=== PATIENT | male | born 1990 | race Caucasian/White ===

== ENCOUNTER 2016-12-02 11:19 | Emergency (ER) | payer OTHER ==
[2016-12-02 11:23] VITALS: BP 132/75; PULSE 71; TEMP 98.4; BMI 41.3
--- NOTE | 2016-12-02 11:31 | PDOC ---
History of Present Illness - General Chief Complaint: Pain Stated Complaint: STOMACH PAIN Time Seen by Provider: 12/02/16 11:31 - History of Present Illness Initial Comments: 12/02/16 12:18 "Patient is a 26 year old male with no past medical history, presents to the ED with epigastric abdominal pain since yesterday. He states that he last ate [place] food last night. The pain has been constant since then. He reports 3 episodes of vomiting today. He also reports chills but no fevers. Patient states that he had a similar episode last year after eating steak. Pt came to this ER, where he had a CT abdomen/pelvis that was negative. He denies any fever, diarrhea, constipation, SOB, or cp. PSH - none " Past History - Past Medical History Allergies/Adverse Reactions: Allergies Allergy/AdvReac Type Severity Reaction Status Date / Time No Known Allergies Allergy Verified 12/02/16 11:23 Home Medications: Ambulatory Orders NK [No Known Home Medication] 09/27/15 - Psycho/Social/Smoking Cessation Hx Anxiety: No Suicidal Ideation: No Smoking History: Never smoked Have you smoked in the past 12 months: No Information on smoking cessation initiated: No Hx Alcohol Use: No Drug/Substance Use Hx: No Substance Use Type: None Review of Systems - Review of Systems Comments:: 12/02/16 12:20 "GENERAL/CONSTITUTIONAL: (+) chills. No fever. No weakness. HEAD, EYES, EARS, NOSE AND THROAT: No change in vision. No ear pain or discharge. No sore throat. GASTROINTESTINAL:(+)nausea, vomiting, abdominal pain. No diarrhea or constipation. GENITOURINARY: No dysuria, frequency, or change in urination. CARDIOVASCULAR: No chest pain or shortness of breath. RESPIRATORY: No cough, wheezing, or hemoptysis. MUSCULOSKELETAL: No joint or muscle swelling or pain. No neck or back pain. SKIN: No rash NEUROLOGIC: No headache, vertigo, loss of consciousness, or change in strength/ sensation. ENDOCRINE: No increased thirst. No abnormal weight change. HEMATOLOGIC/LYMPHATIC: No anemia, easy bleeding, or history of blood clots. ALLERGIC/IMMUNOLOGIC: No hives or skin allergy. " *Physical Exam - Vital Signs Last Vital Signs Temp Pulse Resp BP Pulse Ox 98.4 F 71 18 132/75 99 12/02/16 11:20 12/02/16 11:20 12/02/16 11:20 12/02/16 11:20 12/02/16 11:20 - Physical Exam Comments: 12/02/16 12:20 "GENERAL: Awake, alert, and fully oriented, in no acute distress HEAD: No signs of trauma EYES: PERRLA, EOMI, sclera anicteric, conjunctiva clear ENT: Auricles normal inspection, hearing grossly normal, nares patent, oropharynx clear without exudates. Moist mucosa NECK: Normal ROM, supple, no lymphadenopathy, JVD, or masses LUNGS: Breath sounds equal, clear to auscultation bilaterally. No wheezes, and no crackles HEART: Regular rate and rhythm, normal S1 and S2, no murmurs, rubs or gallops ABDOMEN: (+)epigastric tenderness. Soft, normoactive bowel sounds. No guarding , no rebound. No masses EXTREMITIES: Normal range of motion, no edema. No clubbing or cyanosis. No cords, erythema, or tenderness NEUROLOGICAL: Cranial nerves II through XII grossly intact. Normal speech, normal gait SKIN: Warm, Dry, normal turgor, no rashes or lesions noted. " ED Treatment Course - LABORATORY CBC & Chemistry Diagram: 12/02/16 11:47 12/02/16 11:47 Medical Decision Making - Medical Decision Making 12/02/16 12:21 26 M with no PMH presents to ER with epigastric pain and vomiting since last night after eating. Pt with similar complaint last year, had unremarkable CTAP. Etiology likely gastritis vs pancreatitis. However, given association with eating, will obtain RUQ sono to r/o gallbladder pathology. - Labs, lipase - RUQ sono - IVF, zofran, pepcid, maalox 12/02/16 13:31 CBC,CMP WBC 10.4 K/mm3 (4.0-10.0) H 12/02/16 11:47 RBC 5.46 M/mm3 (4.00-5.60) 12/02/16 11:47 Hgb 14.8 GM/dL (11.7-16.9) 12/02/16 11:47 Hct 44.8 % (35.4-49) 12/02/16 11:47 MCV 82.1 fl (80-96) 12/02/16 11:47 MCH 27.2 pg (25.7-33.7) 12/02/16 11:47 MCHC 33.1 g/dl (32.0-35.9) 12/02/16 11:47 RDW 14.2 % (11.9-15.9) 12/02/16 11:47 Plt Count 292 K/MM3 (134-434) 12/02/16 11:47 MPV 8.2 fl (7.5-11.1) 12/02/16 11:47 Neutrophils % 70.6 % (42.8-82.8) 12/02/16 11:47 Lymphocytes % 18.3 % (8-40) D 12/02/16 11:47 Monocytes % 8.1 % (3.8-10.2) 12/02/16 11:47 Eosinophils % 2.4 % (0-4.5) 12/02/16 11:47 Basophils % 0.6 % (0-2.0) 12/02/16 11:47 Sodium 142 mmol/L (136-145) 12/02/16 11:47 Potassium 4.4 mmol/L (3.5-5.1) 12/02/16 11:47 Chloride 104 mmol/L (98-107) 12/02/16 11:47 Carbon Dioxide 30 mmol/L (21-32) 12/02/16 11:47 Anion Gap 8 (8-16) 12/02/16 11:47 BUN 14 mg/dL (7-18) 12/02/16 11:47 Creatinine 0.9 mg/dL (0.7-1.3) 12/02/16 11:47 Creat Clearance w eGFR > 60 (>60) 12/02/16 11:47 Random Glucose 107 mg/dL (74-106) H D 12/02/16 11:47 Calcium 9.4 mg/dL (8.5-10.1) 12/02/16 11:47 Total Bilirubin 0.7 mg/dL (0.2-1.0) D 12/02/16 11:47 AST 12 U/L (15-37) L 12/02/16 11:47 ALT 33 U/L (12-78) 12/02/16 11:47 Alkaline Phosphatase 144 U/L (45-117) H 12/02/16 11:47 Total Protein 7.3 g/dl (6.4-8.2) 12/02/16 11:47 Albumin 4.0 g/dl (3.4-5.0) 12/02/16 11:47 Lipase 140 U/L (73-393) 12/02/16 11:47 US with cholelithiasis but no cholecystitis. Labs show normal bilis, no evidence of biliary obstruction. Negative gallardo's on exam. Low suspicion for acute ernie. Pt reassessed. Now able to tolerate PO liquids s/p GI cocktail. Abdomen with mild epigastric TTP. Likely gastritis. Stable for DC. *DC/Admit/Observation/Transfer Diagnosis at time of Disposition: Abdominal pain - Discharge Dispostion Disposition: HOME - Referrals Referrals: Jaja Pringle [Primary Care Provider] - Mary Lou Boo MD [Staff Physician] - - Patient Instructions Printed Discharge Instructions: DI for Gastritis, DI for Gallstones Additional Instructions: Your labs today were normal. Your ultrasound showed some gallstones, which can potentially cause problems in the future. Call the number provided to make an appointment with our gastroenterology clinic for further evaluation of your gallstones. These may occasionally cause blockages or infections that can cause severe pain, illness, or even . If you experience severe abdominal pain with fevers or vomiting, return to the ER immediately. - Attestations Physician Attestion: 12/02/16 13:44 I, Dr. Philippe Arango MD, attest that this document has been prepared under my direction and personally reviewed by me in its entirety. I further attest, that it accurately reflects all work, treatment, procedures and medical decision -making performed by me.
[2016-12-02] MEDS ORDERED: MAG HYDROX/AL HYDROX/SIMETH 30 ML UNIT-DOSE CUP PO ONE (11:38)
[2016-12-02] MEDS ORDERED: ONDANSETRON 4 MG/2 ML VIAL IVPB ONE (11:39)
[2016-12-02] MEDS ORDERED: MAG HYDROX/AL HYDROX/SIMETH 30 ML UNIT-DOSE CUP ONE (11:46)
[2016-12-02] MEDS ORDERED: ONDANSETRON 4 MG/2 ML VIAL ONE (11:46)
[2016-12-02] MEDS ORDERED: FAMOTIDINE 20 MG/50 ML IVPB 50 ML IVPB ONE ×2 (12:06→12:43)
[2016-12-02 12:21] LABS: BASOPHIL 0.6 % (0-2.0); EOSINOPHIL 2.4 % (0-4.5); MCH 27.2 pg (25.7-33.7); MCHC 33.1 g/dl (32.0-35.9); MEAN CELL VOLUME 82.1 fl (80-96); MEAN PLT VOLUME 8.2 fl (7.5-11.1); NEUTROPHILS 70.6 % (42.8-82.8); PLATELET COUNT 292 K/MM3 (134-434); RDW 14.2 % (11.9-15.9); WHITE BLOOD COUNT 10.4 K/mm3 (4.0-10.0)
[2016-12-02 12:40] LABS: URINE APPEARANCE CLEAR; URINE BILIRUBIN NEGATIVE (NEGATIVE); URINE BLOOD NEGATIVE (NEGATIVE); URINE COLOR LTYELLOW; URINE GLUCOSE (UA) NEGATIVE (NEGATIVE); URINE KETONE NEGATIVE (NEGATIVE); URINE LEUK ESTERASE NEGATIVE (NEGATIVE); URINE NITRITE NEGATIVE (NEGATIVE); URINE PROTEIN NEGATIVE (NEGATIVE); URINE UROBILINOGEN NEGATIVE mg/dL (0.2-1.0)
[2016-12-02 12:53] LABS: ALK PHOS 144 U/L (45-117); ANION GAP 8 (8-16); BILIRUBIN,TOTAL 0.7 mg/dL (0.2-1.0); CALCIUM 9.4 mg/dL (8.5-10.1); CO2 30 mmol/L (21-32); CREATININE 0.9 mg/dL (0.7-1.3); GLUCOSE,RANDOM 107 mg/dL (74-106); SGOT/AST 12 U/L (15-37); SGPT/ALT 33 U/L (12-78); TOT PROT 7.3 g/dl (6.4-8.2)
== END 2016-12-02 13:48 | disposition home or self-care (01) ==
LOC: JER 11:19
PROC: 3E033GC Introduction of Other Therapeutic Substance into Peripheral Vein, Percutaneous Approach (ICD-10-PCS; principal; 2016-12-02)
PROC: 3E033GC Introduction of Other Therapeutic Substance into Peripheral Vein, Percutaneous Approach (ICD-10-PCS; 2016-12-02)
DX: K29.70 Gastritis, unspecified, without bleeding (principal); K80.20 Calculus of gallbladder without cholecystitis without obstruction
CPT/HCPCS: 36415; 76705-TC; 80053; 81003; 83690; 85025; 96365; 96375; 99283-25

== ENCOUNTER 2018-03-06 23:11 | Emergency (ER) | payer OTHER ==
[2018-03-06 23:17] VITALS: BP 145/75; PULSE 80; TEMP 97.9; BMI 39.9
--- NOTE | 2018-03-06 23:20 | PDOC ---
History of Present Illness - General Chief Complaint: Cold Symptoms Stated Complaint: COUGH Time Seen by Provider: 03/06/18 23:20 - History of Present Illness Initial Comments: 27 year old previously healthy male presenting with cough for the past two days and subsequent chest tightness + one episode apnea and wheezing. Patient presented today because of the episode of apnea and wheezing after a bout of coughing earlier today. Denies any history of asthma or atopy and he has no family history of atopy. Of note his brother was hospitalized for bronchitis earlier this week but was febrile and much worse appearing. Denies any fevers, chills, nausea, vomiting, diarrhea or other symptoms. 03/06/18 23:50 Past History - Past Medical History Allergies/Adverse Reactions: Allergies Allergy/AdvReac Type Severity Reaction Status Date / Time No Known Allergies Allergy Verified 03/06/18 23:16 Home Medications: Ambulatory Orders Albuterol 2.5/Ipratropium 0.5 [Duoneb -] 1 amp NEB Q4H PRN #1 inhaler 03/07/18 Prednisone [Prednisone 50 MG TABLETS] 50 mg PO DAILY #4 tablet 03/07/18 COPD: No - Suicide/Smoking/Psychosocial Hx Smoking History: Never smoked Have you smoked in the past 12 months: No Information on smoking cessation initiated: No Hx Alcohol Use: No Drug/Substance Use Hx: No Substance Use Type: None Review of Systems - Review of Systems Constitutional: No: Diaphoresis, Fever, Loss of Appetite HEENTM: No: Blurred Vision, Tearing, Cataracts, Ear Pain Respiratory: Yes: Cough, Shortness of Breath, SOB at Rest, Wheezing. No: Productive cough Cardiac (ROS): Yes: Chest Pain. No: Irregular Heart Rate, Syncope ABD/GI: No: Diarrhea, Nausea, Vomiting : No: Dysuria, Discharge, Frequency Musculoskeletal: No: Back Pain, Joint Pain Integumentary: No: Bruising, Lesions, Lumps, Pruritus Neurological: No: Headache, Numbness, Paresthesia Psychiatric: No: Anxiety, Depression Hematologic/Lymphatic: No: Anemia, Blood Clots, Easy Bleeding *Physical Exam - Vital Signs Last Vital Signs Temp Pulse Resp BP Pulse Ox 97.9 F 80 23 H 145/75 96 03/06/18 23:14 03/06/18 23:14 03/06/18 23:14 03/06/18 23:14 03/06/18 23:14 - Physical Exam General Appearance: Yes: Nourished, Appropriately Dressed. No: Apparent Distress HEENT: positive: EOMI, YANETH, Normal ENT Inspection, Normal Voice Neck: positive: Trachea midline, Normal Thyroid, Supple. negative: Tender, Rigid Respiratory/Chest: negative: Chest Tender, Lungs Clear (slightly contricted with expiratory wheezing), Normal Breath Sounds, Respiratory Distress Cardiovascular: positive: Regular Rhythm, Regular Rate Gastrointestinal/Abdominal: positive: Normal Bowel Sounds, Flat, Soft. negative : Tender Musculoskeletal: positive: Normal Inspection. negative: CVA Tenderness, Decreased Range of Motion Extremity: positive: Normal Capillary Refill, Normal Inspection, Normal Range of Motion. negative: Tender Integumentary: positive: Normal Color, Dry, Warm Neurologic: positive: Fully Oriented, Alert, Normal Mood/Affect, Normal Response , Motor Strength 5/5 Medical Decision Making - Medical Decision Making 27 year old male presenting with cough and shortness of breath over the past few days. Symptoms much improved after duonebs x3, steroids, and cough syrup. This is likely some form of asthma. Will also set patient up with our primary care clinic for longitudinal follow up, steroid dose pack, and albuterol inhaler. 03/07/18 02:04 *DC/Admit/Observation/Transfer Diagnosis at time of Disposition: Respiratory difficulty - Discharge Dispostion Disposition: HOME Condition at time of disposition: Improved Decision to Admit order: No - Prescriptions Prescriptions: Albuterol 2.5/Ipratropium 0.5 [Duoneb -] 1 amp NEB Q4H PRN #1 inhaler PRN Reason: Dyspnea Prednisone [Prednisone 50 MG TABLETS] 50 mg PO DAILY #4 tablet - Referrals Referrals: [facility] [place] [Provider Group] - Patient Instructions Printed Discharge Instructions: DI for Asthma -- Adult Additional Instructions: Please use the inhaler every 4 hours as needed, please take the steroids once daily, and please schedule an appointment with the clinic on this sheet to get yourself primary care. Please return to the ED if you have any new or worsening symptoms. - Post Discharge Activity
[2018-03-06] MEDS ORDERED: ALBUTEROL SO4 2.5/IPRATROPIUM 0.5 INH SOL 3 ML VIAL.NEB. NEB SCH (23:45)
[2018-03-06] MEDS ORDERED: ALBUTEROL SO4 2.5/IPRATROPIUM 0.5 INH SOL 3 ML VIAL.NEB. NEB ONE (23:48)
--- NOTE | 2018-03-06 23:48 | PDOC ---
Attending Attestation - HPI HPI: 03/07/18 00:15 The patient is a 27 year old male, with no significant past medical history of, who presents to the emergency department with, cough. As per patient, for the past few days he has been experiencing a worsening cough. Today he notes, one episode of shortness of breath while coughing and chest tightness when coughing , prompting his visit to the ER. Patient is positive for sick contacts of his brother who was recently admitted for bronchitis. He denies any recent fevers, chills, headache or dizziness. He denies any recent nausea, vomit, diarrhea or constipation. He denies any recent dysuria, frequency, urgency or hematuria. Allergies: NKDA Past surgical history: None reported. Social History: Nonsmoker. Denies EtOH use and recreational drug use. Primary Care Physician: Dr. Pringle <Jag Neri - Last Filed: 03/07/18 00:15> - Resident Resident Name: eCcilio Patten - ED Attending Attestation I have performed the following: I have examined & evaluated the patient, The case was reviewed & discussed with the resident, I agree w/resident's findings & plan, Exceptions are as noted - Physicial Exam PE: 03/07/18 00:27 NAD, AOx3 Normal WOB, diffuse end exp wheezing - Medical Decision Making 03/07/18 00:28 No hx of asthma here with several days of URI symptoms, currently afebrile. No other complaints Likely viral syndrome, no focality to lung exam, bronchospasm likely 2/2 uri trigger nebs, re-eval consider steroids 03/07/18 02:52 Interval improvement of symptoms after intervention DC home with rx, strict return instructions <Zafar Rojas - Last Filed: 03/07/18 02:52> Attestations - Attestations 03/07/18 00:15 Documentation prepared by Jag Neri, acting as medical transcription editor for Zafar Rojas MD. <Jag Neri - Last Filed: 03/07/18 00:15>
[2018-03-06] MEDS ORDERED: ACETAMINOPHEN 325 MG TABLET (FP) ONE (23:58)
[2018-03-06] MEDS ORDERED: ACETAMINOPHEN 500 MG TABLET (FP) PO ONE (23:58)
[2018-03-06] MEDS ORDERED: guaiFENesin 200 MG/10 ML 10 ML UNIT-DOSE CUPS ONE (23:59)
[2018-03-06] MEDS ORDERED: guaiFENesin 200 MG/10 ML 10 ML UNIT-DOSE CUPS PO ONE (23:59)
[2018-03-07] MEDS ORDERED: DEXAMETHASONE 4 MG TABLET (FP) PO ONE (00:25)
[2018-03-07] MEDS ORDERED: DEXAMETHASONE SOD PHOSPHATE 10 MG/1 ML VIAL ONE (00:31)
[2018-03-07] MEDS ORDERED: ALBUTEROL SO4 2.5/IPRATROPIUM 0.5 INH SOL 3 ML VIAL.NEB. NEB ONE (00:50)
[2018-03-07] MEDS: ALBUTEROL SO4 2.5/IPRATROPIUM 0.5 INH SOL 3 ML VIAL.NEB. NEB SCH ×2 (00:56→01:18)
[2018-03-07] MEDS ORDERED: guaiFENesin/CODEINE 5 ML UNIT-DOSE CUPS PO ONE (23:58)
== END 2018-03-07 02:23 | disposition home or self-care (01) ==
LOC: JER 23:11
DX: J06.9 Acute upper respiratory infection, unspecified (principal); B97.89 Other viral agents as the cause of diseases classified elsewhere
CPT/HCPCS: 99282-25

== ENCOUNTER 2018-03-19 21:48 | Inpatient (IN) | payer OTHER ==
[2018-03-19] MEDS ORDERED: ALBUTEROL SO4 2.5/IPRATROPIUM 0.5 INH SOL 3 ML VIAL.NEB. NEB ONE ×2 (22:01→22:58)
--- NOTE | 2018-03-19 22:06 | PDOC ---
History of Present Illness - General Chief Complaint: Shortness of Breath Stated Complaint: Shortness of Breath Time Seen by Provider: 03/19/18 22:01 - History of Present Illness Initial Comments: 03/19/18 22:06 Mr. Bradley is a 27 yo male w/ pmh of childhood asthma previously evaluated 03/06 for 2 day history of cough who represents for continuation of symptoms with wheezing at home. Patient reports he has had non-stop coughing for the past 2 weeks with additional pain from coughing. Denies productive cough, or any other coinciding symptoms. Brother was hospitalized for bronchitis a few days before his previous presentation. Denies travel or immobilization. The patient denies headache and dizziness. Denies fever, chills, nausea, vomit, diarrhea and constipation. Denies dysuria, frequency, urgency and hematuria. Past History - Past Medical History Allergies/Adverse Reactions: Allergies Allergy/AdvReac Type Severity Reaction Status Date / Time No Known Allergies Allergy Verified 03/19/18 22:07 Home Medications: Ambulatory Orders Albuterol 2.5/Ipratropium 0.5 [Duoneb -] 1 amp NEB Q4H PRN #1 inhaler 03/07/18 Prednisone [Prednisone 50 MG TABLETS] 50 mg PO DAILY #4 tablet 03/07/18 COPD: No - Suicide/Smoking/Psychosocial Hx Smoking History: Never smoked Have you smoked in the past 12 months: No Hx Alcohol Use: No Drug/Substance Use Hx: No Substance Use Type: None Review of Systems - Review of Systems Comments:: 03/20/18 00:36 GENERAL/CONSTITUTIONAL: No fever or chills. No weakness. HEAD, EYES, EARS, NOSE AND THROAT: No change in vision. No ear pain or discharge. No sore throat. CARDIOVASCULAR: +Shortness of breath as described RESPIRATORY: No cough, wheezing, or hemoptysis. GASTROINTESTINAL: No nausea, vomiting, diarrhea or constipation. GENITOURINARY: No dysuria, frequency, or change in urination. MUSCULOSKELETAL: No joint or muscle swelling or pain. No neck or back pain. SKIN: No rash NEUROLOGIC: No headache, vertigo, loss of consciousness, or change in strength/ sensation. ENDOCRINE: No increased thirst. No abnormal weight change HEMATOLOGIC/LYMPHATIC: No anemia, easy bleeding, or history of blood clots. ALLERGIC/IMMUNOLOGIC: No hives or skin allergy. *Physical Exam - Physical Exam Comments: 03/20/18 00:35 GENERAL: Awake, alert, and fully oriented, in no acute distress HEAD: No signs of trauma, normocephalic, atraumatic EYES: PERRLA, EOMI, sclera anicteric, conjunctiva clear ENT: Auricles normal inspection, hearing grossly normal, nares patent, oropharynx clear without exudates. Moist mucosa NECK: Normal ROM, supple, no lymphadenopathy, JVD, or masses LUNGS: +Diffuse wheezes appreciated throughout lung thomas. HEART: Regular rate and rhythm, normal S1 and S2, no murmurs, rubs or gallops, peripheral pulses normal and equal bilaterally. ABDOMEN: Soft, nontender, normoactive bowel sounds. No guarding, no rebound. No masses EXTREMITIES: Normal inspection, Normal range of motion, no edema. No clubbing or cyanosis. NEUROLOGICAL: Cranial nerves II through XII grossly intact. Normal speech, normal gait, no focal sensorimotor deficits SKIN: Warm, Dry, normal turgor, no rashes or lesions noted. ED Treatment Course - LABORATORY CBC & Chemistry Diagram: 03/19/18 22:50 03/19/18 22:50 Medical Decision Making - Medical Decision Making 03/20/18 00:36 Mr. Bradley is a 27 yo male w/ pmh as described who presents for evaluation of several weeks of cough with wheezing. Patient given several duonebs as well as solumedrol, mg, with little improvement of symptoms. CXR negative. Labs grossly wnl. Will admit patient for observation overnight for bronchitis / asthma exacerbation. Laboratory Results - last 24 hr 03/19/18 03/19/18 03/19/18 22:50 22:50 22:50 WBC 10.7 H RBC 5.19 Hgb 14.8 Hct 42.7 MCV 82.4 MCH 28.5 MCHC 34.6 RDW 14.0 Plt Count 259 MPV 7.6 Absolute Neuts (auto) 5.6 Neutrophils % 52.9 D Lymphocytes % 30.0 D Monocytes % 6.9 Eosinophils % 9.4 H D Basophils % 0.8 Nucleated RBC % 0 Sodium 139 Potassium 4.1 Chloride 103 Carbon Dioxide 27 Anion Gap 9 BUN 15 Creatinine 0.9 Creat Clearance w eGFR > 60 Random Glucose 80 Calcium 9.0 Total Bilirubin 1.2 H AST 18 ALT 30 Alkaline Phosphatase 120 H Total Protein 7.4 Albumin 4.2 Influenza A (Rapid) Negative Influenza B (Rapid) Negative *DC/Admit/Observation/Transfer Diagnosis at time of Disposition: Bronchitis Asthma exacerbation Qualifiers: Asthma severity: unspecified severity Asthma persistence: unspecified Qualified Code(s): J45.901 - Unspecified asthma with (acute) exacerbation - Discharge Dispostion Decision to Admit order: Yes - Referrals Referrals: Jaja Pringle [Primary Care Provider] - - Patient Instructions - Post Discharge Activity
[2018-03-19] MEDS ORDERED: SODIUM CHLORIDE 1,000 ML IV STA (22:15)
[2018-03-19] MEDS ORDERED: methylPREDNISolone NA SUCC 125 MG/2 ML VIAL IVPUSH ONE (22:58)
[2018-03-19] MEDS ORDERED: methylPREDNISolone NA SUCC 125 MG/2 ML VIAL ONE (22:58)
[2018-03-19 23:01] LABS: BASO % 0.8 % (0-2.0); EOS % 9.4 % (0-4.5); HEMATOCRIT 42.7 % (35.4-49); HEMOGLOBIN 14.8 GM/dL (11.7-16.9); MCH 28.5 pg (25.7-33.7); MCHC 34.6 g/dl (32.0-35.9); MEAN CELL VOLUME 82.4 fl (80-96); MEAN PLT VOLUME 7.6 fl (7.5-11.1); MONO % 6.9 % (3.8-10.2); NEUT % 52.9 % (42.8-82.8); PLATELET COUNT 259 K/MM3 (134-434); RBC 5.19 M/mm3 (4.00-5.60); WHITE BLOOD COUNT 10.7 K/mm3 (4.0-10.0)
--- NOTE | 2018-03-19 23:04 | PDOC ---
Attending Attestation - HPI HPI: 03/19/18 23:08 The patient is a 27 year old female, with a significant past medical history of childhood asthma, who presents to the emergency department with persistent cough and wheezing. The patient denies chest pain, headache and dizziness. The patient denies fever , chills, nausea, vomit, diarrhea and constipation. The patient denies dysuria, frequency, urgency and hematuria. Allergies: NKDA - Physicial Exam PE: 03/19/18 23:09 GENERAL: The patient is in no acute distress. HEAD: Normal with no signs of trauma. EYES: PERRLA, EOMI, sclera anicteric, conjunctiva clear. ENT: Ears normal, nares patent, oropharynx clear without exudates. Moist mucous membranes. NECK: Normal range of motion, supple without lymphadenopathy, JVD, or masses. LUNGS: (+) scattered diffuse wheezing. Breath sounds equal, clear to auscultation bilaterally. no crackles. HEART:Regular rate and rhythm, normal S1 and S2 without murmur, rub or gallop. ABDOMEN: Soft, nontender, normoactive bowel sounds. No guarding, no rebound. No masses palpable. EXTREMITIES: Normal range of motion, no edema. No clubbing or cyanosis. No erythema, or tenderness. NEUROLOGICAL: Cranial nerves II through XII grossly intact. Normal speech. No focal neurological deficits. MUSCULOSKELETAL: Back non-tender to palpation, no CVA tenderness SKIN: Warm, Dry, normal turgor, no rashes or lesions noted. - Medical Decision Making 03/19/18 23:09 Documentation prepared by Kajal Sadler, acting as medical insurance collector for Natasha George MD <Kajal Sadler - Last Filed: 03/19/18 23:08> - Resident Resident Name: Josh Auguste - ED Attending Attestation I have performed the following: I have examined & evaluated the patient, The case was reviewed & discussed with the resident, I agree w/resident's findings & plan, Exceptions are as noted - Medical Decision Making 03/19/18 23:22 Pt states he has had wheezing for the past 3 weeks No prior history of asthma as an adult (pt did have asthma as a child, no prior intubations) Was seen in the ER and did not improve Pt was started on Azithromycin which he took Pt denies fevers or chills I have examined this patient after nebs He has improved but continues to have expiratory wheezing CXR: no obvious consolidation, tented area left base 03/20/18 01:36 EKG - Twelve-lead EKG was performed and reviewed by me. There is normal sinus rhythm with a normal rate 81 bpm. The axis is normal. The intervals are normal. There are no ST or T wave abnormalities. Impression: Normal twelve-lead EKG <Natasha George - Last Filed: 03/20/18 01:40>
[2018-03-19 23:29] LABS: ALBUMIN 4.2 g/dl (3.4-5.0); ALK PHOS 120 U/L (45-117); ANION GAP 9 MMOL/L (8-16); BILIRUBIN,TOTAL 1.2 mg/dL (0.2-1); BLOOD UREA NITROGEN 15 mg/dL (7-18); CHLORIDE 103 mmol/L (98-107); CO2 27 mmol/L (21-32); CREATININE 0.9 mg/dL (0.55-1.3); GLUCOSE,RANDOM 80 mg/dL (74-106); POTASSIUM 4.1 mmol/L (3.5-5.1); SGOT/AST 18 U/L (15-37); SGPT/ALT 30 U/L (13-61); SODIUM 139 mmol/L (136-145); TOT PROT 7.4 g/dl (6.4-8.2)
[2018-03-20] MEDS ORDERED: MAGNESIUM SULF 50% (8.12 MEQ/2 ML-1 GM VIAL) IVPB ONE (00:19)
[2018-03-20] MEDS ORDERED: MAGNESIUM SULF 50% (8.12 MEQ/2 ML-1 GM VIAL) ONE (01:10)
[2018-03-20] MEDS ORDERED: ALBUTEROL SO4 2.5/IPRATROPIUM 0.5 INH SOL 3 ML VIAL.NEB. NEB ONE ×2 (01:11→02:06)
--- NOTE | 2018-03-20 01:14 | PN ---
Teaching Attending Note Name of Resident: Erik Nichols ATTENDING PHYSICIAN STATEMENT I saw and evaluated the patient. I reviewed the resident's note and discussed the case with the resident. I agree with the resident's findings and plan as documented. SUBJECTIVE: Patient is a 27 year old man with history of childhood asthma previously evaluated 03/06 for 2 day history of cough who represents for continuation of symptoms with wheezing at home. Patient reports he has had non-stop coughing for the past 2 weeks with additional pain from coughing. Denies productive cough , or any other coinciding symptoms. Brother was hospitalized for bronchitis a few days before his previous presentation. Denies travel or immobilization. This is his first presentation with acute asthma. 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 OBJECTIVE: Alert Vital Signs Period Temp Pulse Resp BP Sys/Bright Pulse Ox Last 24 Hr 98.9 F 115 26 150/90 100 HEENT: No Jaundice, eye redness or discharge, PERRLA, EOMI. Normocephalic, atraumatic. External ears are normal and hearing is grossly intact. No nasal discharge. Neck: Supple, nontender. No palpable adenopathy or thyromegaly. No JVD Chest: Good effort. Diffuse wheezing. Clear to percussion. Heart: Regular. No S3, rub or murmur Abdomen: Not distended, soft, nontender and no HSM. No rebound or guarding. Normoactive bowel sounds. Ext: Peripheral pulses intact. No leg edema. Skin: Warm and dry. No petechiae, rash or ecchymosis. Neuro: Alert. Oriented x3. CN 2-12 grossly intact. Sensation grossly intact in all four extremities and DTR are symmetric. Current Medications Generic Name Dose Route Start Last Admin Trade Name Freq PRN Reason Stop Dose Admin Albuterol/Ipratropium 1 amp 03/20/18 08:00 Duoneb - NEB RQID SUZANNE Home Medications Medication Instructions Recorded Albuterol 2.5/Ipratropium 0.5 1 amp NEB Q4H PRN #1 inhaler 03/07/18 [Duoneb -] Prednisone [Prednisone 50 MG 50 mg PO DAILY #4 tablet 03/07/18 TABLETS] Abnormal Lab Results 03/19/18 03/19/18 22:50 22:50 WBC 10.7 H Eosinophils % 9.4 H D Total Bilirubin 1.2 H Alkaline Phosphatase 120 H ASSESSMENT AND PLAN: 1. Acute asthma exacerbation - Likely precipitated by URI. No acute infiltrate on CXR and Flu swab was negative. Will treat with Duoneb, Symbicort, Solumedrol , Protonix, Rocephin and Azithromycin. Needs outpatient sleep studies and PFTs. 2. Obesity - Will provide patient all the necessary assistance, counseling and positive reinforcement to facilitate weight loss. Consult ethanol maintenance mechanic. 3. DVT prophylaxis - Lovenox 40 mg SQ q 12 hours. 4. Advance directives - Full code
--- NOTE | 2018-03-20 01:35 | HP ---
CHIEF COMPLAINT: cough, SOB PCP: HISTORY OF PRESENT ILLNESS: Patient is a 27 y/o M w/ PMHx childhood asthma, no prior hospitalizations for asthma, takes no medications, p/w coughing/wheezing x 2 weeks. Has sick contact , brother with bronchitis. Presented on 03/06, discharged w/ oral steroid course. Symptoms persisted and worsened. Pt now highly SOB. Cough persists. States he is becoming tired with work of breathing. No other complaints. Received solumedrol 125, duonebs x 2, Mg 2g in ED. Flu swab negative. CBC shows eosinophilia. CXR unremarkable. ER course was notable for: (1) (2) (3) Recent Travel: PAST MEDICAL HISTORY: As per [facility] PAST SURGICAL HISTORY: None Social History: Smoking: Alcohol: Drugs: Family History: Allergies No Known Allergies Allergy (Verified 03/19/18 22:07) HOME MEDICATIONS: Home Medications Medication Instructions Recorded Albuterol 2.5/Ipratropium 0.5 1 amp NEB Q4H PRN #1 inhaler 03/07/18 [Duoneb -] Prednisone [Prednisone 50 MG 50 mg PO DAILY #4 tablet 03/07/18 TABLETS] REVIEW OF SYSTEMS As per [facility] PHYSICAL EXAMINATION Vital Signs - 24 hr 03/19/18 21:58 Temperature 98.9 F Pulse Rate 115 H Respiratory 26 H Rate Blood Pressure 150/90 O2 Sat by Pulse 100 Oximetry (%) GENERAL: A&Ox3, NAD HEAD: NC/AT EYES: PERRLA, EOMI EARS, NOSE, THROAT: MMM NECK: Normal range of motion, supple without lymphadenopathy, JVD, or masses. LUNGS: Diffuse expiratory wheezing in all lung thomas, no accessory muscle use HEART: RRR no m/r/g ABDOMEN: +bs, soft, NT, ND MUSCULOSKELETAL: Normal range of motion at all joints. No bony deformities or tenderness. No CVA tenderness. UPPER EXTREMITIES: 2+ pulses, warm, well-perfused. No cyanosis. No clubbing. No peripheral edema. LOWER EXTREMITIES: 2+ pulses, warm, well-perfused. No calf tenderness. No peripheral edema. 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 Good eye contact. Appropriate mood and affect. SKIN: Warm, dry, normal turgor, no rashes or lesions noted, normal capillary refill. Laboratory Results - last 24 hr 03/19/18 03/19/18 03/19/18 22:50 22:50 22:50 WBC 10.7 H RBC 5.19 Hgb 14.8 Hct 42.7 MCV 82.4 MCH 28.5 MCHC 34.6 RDW 14.0 Plt Count 259 MPV 7.6 Absolute Neuts (auto) 5.6 Neutrophils % 52.9 D Lymphocytes % 30.0 D Monocytes % 6.9 Eosinophils % 9.4 H D Basophils % 0.8 Nucleated RBC % 0 Sodium 139 Potassium 4.1 Chloride 103 Carbon Dioxide 27 Anion Gap 9 BUN 15 Creatinine 0.9 Creat Clearance w eGFR > 60 Random Glucose 80 Calcium 9.0 Total Bilirubin 1.2 H AST 18 ALT 30 Alkaline Phosphatase 120 H Total Protein 7.4 Albumin 4.2 Influenza A (Rapid) Negative Influenza B (Rapid) Negative ASSESSMENT/PLAN: 27 y/o M w/ PMHx childhood asthma, untreated w/o prior hospitalizations, p/w cough, SOB x 2 weeks. Admitted for asthma exacerbation and empiric treatment of atypical pneumonia. #asthma exacerbation -solumedrol 60 q8h -standing duonebs and symbicort -incentive spirometer -empiric ceftriaxone/azithromycin as atypical PNA may be inciting cause #FEN -no IVF -monitor and replete electrolytes as needed -regular diet #PPx -DVT: Lovenox -GI: not indicated #code -full #dispo -obs Visit type - Emergency Visit Emergency Visit: Yes Care time: The patient presented to the Emergency Department on the above date and was hospitalized for further evaluation of their emergent condition. - New Patient This patient is new to me today: Yes Date on this admission: 03/20/18 - Critical Care Critical Care patient: No
[2018-03-20] MEDS: ALBUTEROL SO4 2.5/IPRATROPIUM 0.5 INH SOL 3 ML VIAL.NEB. NEB SCH ×5 (01:40→20:40)
[2018-03-20] MEDS ORDERED: CEFTRIAXONE 1 GM in DEXTROSE 5%-WATER - 50 ML IVPB ONE (01:51)
[2018-03-20] MEDS ORDERED: AZITHROMYCIN IVPB 500 MG/250 ML BAG IVPB ONE ×2 (01:52→02:07)
[2018-03-20] MEDS ORDERED: CEFTRIAXONE 1 GM/50 ML BAG ONE (02:07)
[2018-03-20] MEDS: methylPREDNISolone NA SUCC 125 MG/2 ML VIAL IVPUSH SCH ×2 (02:26→09:45)
[2018-03-20 03:47] VITALS: BMI 41.2
[2018-03-20 06:42] LABS: BASO % 0.3 % (0-2.0); EOS % 0.4 % (0-4.5); HEMATOCRIT 42.6 % (35.4-49); HEMOGLOBIN 14.1 GM/dL (11.7-16.9); LYMPH % 7.4 % (8-40); MCH 27.5 pg (25.7-33.7); MCHC 33.1 g/dl (32.0-35.9); MEAN PLT VOLUME 7.7 fl (7.5-11.1); MONO % 0.9 % (3.8-10.2); PLATELET COUNT 246 K/MM3 (134-434); RBC 5.13 M/mm3 (4.00-5.60); WHITE BLOOD COUNT 10.2 K/mm3 (4.0-10.0)
[2018-03-20 06:50] LABS: ANION GAP 13 MMOL/L (8-16); BLOOD UREA NITROGEN 14 mg/dL (7-18); CALCIUM 8.6 mg/dL (8.5-10.1); CHLORIDE 106 mmol/L (98-107); CO2 22 mmol/L (21-32); CREATININE 1.2 mg/dL (0.55-1.3); GLUCOSE,RANDOM 188 mg/dL (74-106); MAGNESIUM 2.4 mg/dL (1.8-2.4); PHOSPHOROUS 1.2 mg/dL (2.5-4.9); SODIUM 140 mmol/L (136-145)
[2018-03-20] MEDS ORDERED: ALBUTEROL SO4 2.5/IPRATROPIUM 0.5 INH SOL 3 ML VIAL.NEB. NEB SCH (08:00)
[2018-03-20] MEDS ORDERED: NAPH,MB-DB/K PH,MBDB POWDER PACKET PO ONE (08:42)
[2018-03-20] MEDS ORDERED: PT OWN MED DRAWER 7, Y5N ONE (09:34)
[2018-03-20] MEDS: ENOXAPARIN NA (PORCINE) 40 MG/0.4 ML DISP.SYRIN SQ SCH (09:45)
[2018-03-20] MEDS ORDERED: CEFTRIAXONE 1 GM in DEXTROSE 5%-WATER - 50 ML IVPB SCH (10:00)
[2018-03-20] MEDS ORDERED: BUDESONIDE/FORMETEROL FUMARATE 80/4.5 mcg INHALER IH SCH (10:00)
[2018-03-20] MEDS ORDERED: AZITHROMYCIN IVPB 500 MG/250 ML BAG IVPB SCH (10:00)
[2018-03-20 12:16] LABS: ACANTHOCYTES 0; ANISOCYTOSIS 0; HELMET CELLS 0; HOWELL-JOLLY BODIES 0; MACROCYTOSIS 0; OVALOCYTE 0; PLATELET ESTIMATE NORMAL; ROULEAU 0; SICKELED CELLS 0; TARGET CELLS 0; TEAR DROP CELLS 0; TOXIC GRANULATION 0
--- NOTE | 2018-03-20 12:45 | EKG ---
Test Reason : Blood Pressure : / mmHG Vent. Rate : 081 BPM Atrial Rate : 081 BPM P-R Int : 154 ms QRS Dur : 088 ms QT Int : 350 ms P-R-T Axes : 031 031 037 degrees QTc Int : 406 ms NORMAL SINUS RHYTHM NORMAL ECG NO PREVIOUS ECGS AVAILABLE Confirmed by DL HAINES, AL ([id number]) on 03/20/2018 12:45:19 PM Referred By: Confirmed By:AL LIZAMA MD
[2018-03-20] MEDS ORDERED: methylPREDNISolone NA SUCC 125 MG/2 ML VIAL IVPUSH SCH (14:45)
--- NOTE | 2018-03-20 15:52 | PN ---
Progress Note (short form) - Note Progress Note: PULMONARY CONSULTATION DICTATED 03/20/18 IMP ASTHMA EXACERBATION EOSINOPHILIA LIKELY OSAS OBESITY PLAN IV STEROIDS INHALED BRONCHODILATORS O2 MONITOR PEAK FLOW PFTS OUTPATIENT IGE LEVEL OUTPATIENT MONITOR CBC SLEEP SCREEN DR ORTEGA Problem List - Problems (1) Eosinophilia Code(s): D72.1 - EOSINOPHILIA (2) Asthma exacerbation Code(s): J45.901 - UNSPECIFIED ASTHMA WITH (ACUTE) EXACERBATION Qualifiers: Asthma severity: unspecified severity Asthma persistence: unspecified Qualified Code(s): J45.901 - Unspecified asthma with (acute) exacerbation
[2018-03-20] MEDS ORDERED: ALBUTEROL SO4 0.083% IH SOL 2.5 MG/3 ML VIAL.NEB. NEB PRN (15:53)
--- NOTE | 2018-03-20 16:57 | CONS ---
DATE OF CONSULTATION: 03/20/2018 PULMONARY CONSULTATION REFERRING PHYSICIAN: Yobani Mckeon MD HISTORY OF PRESENT ILLNESS: The patient is a 27-year-old male with a past medical history of chronic childhood asthma. No history of hospitalizations and no intubations in the past. He was admitted to [facility] complaining of a two-week history of increasing shortness of breath, cough and bronchospasm. The patient states he has not had any recent upper respiratory infection symptoms. Apparently, he recently went to the emergency room and at that time was treated with inhaled bronchodilators and prednisone which did not offer significant improvement. His symptoms continued to worsen, at which time he was sent back to the emergency room. In the ER, he was noted to be in moderate respiratory distress. He was started on inhaled bronchodilators, steroids and magnesium sulfate with good clinical response. He was subsequently admitted for therapy. The patient is a nonsmoker. He has no history of occupational exposure to chemical fumes. Of note, the patient states that his new girlfriend snores, has daytime sleepiness as well as witnessed apneic episodes. PAST MEDICAL HISTORY: Asthma. CURRENT MEDICATIONS: Solu-Medrol, Zithromax, Lovenox and Symbicort. REVIEW OF SYSTEMS: Positive for shortness of breath, cough, wheezing. No chest pain, no palpitations. PHYSICAL EXAMINATION: General: The patient is an obese male, awake and alert, in no acute distress. Vital Signs: He is currently afebrile. Blood pressure is 143/72, respiratory rate 20, O2 saturation is 93% on room air. HEENT: Head is normocephalic, atraumatic. Neck: Supple. Heart: Regular. S1, S2. Chest: Scattered bibasilar wheezes. Abdomen: Soft. Bowel sounds are positive. Extremities: No cyanosis or edema. LABORATORY: WBC is 10.7, hemoglobin 14.8, hematocrit 42.7, platelet count of 259,000 with 52 polys, 30 lymphocytes and 9 eosinophils. BUN 14, creatinine 1.2. A chest x-ray shows no infiltrates or effusions. IMPRESSION: 1. Acute asthma exacerbation, possibly secondary to a upper respiratory tract infection. 2. Likely obstructive sleep apnea. PLAN: 1. IV steroids, inhaled bronchodilators, supplemental O2. 2. Obtain serum IGE level as an outpatient. 3. Continue to monitor his eosinophils. 4. I have ordered a screen as well as outpatient sleep studies. Monitor peak flow. 5. Pulmonary function test as an outpatient. HANDY ORTEGA M.D. GABRIELLA/[id number]
--- NOTE | 2018-03-20 17:32 | PN ---
Teaching Attending Note Name of Resident: Osmin Graham ATTENDING PHYSICIAN STATEMENT I saw and evaluated the patient. I reviewed the resident's note and discussed the case with the resident. I agree with the resident's findings and plan as documented with exceptions below. SUBJECTIVE: Patient seen and examined, breathing with some improvement, still wheezy. OBJECTIVE: Vital Signs Period Temp Pulse Resp BP Sys/Bright Pulse Ox Last 24 Hr 97.6 F-98.9 F 104-124 20-26 137-150/61-99 93-100 Intake & Output 03/17/18 03/18/18 03/19/18 03/20/18 23:59 23:59 23:59 23:59 Intake Total 1939 Balance 194 Weight 290 lb 279 lb 3 oz General: sitting in bed, able to talk in full sentences Chest: mild decreased air entry, scattered wheezing all over Abdomen:Soft, obese, NT Extremities: no edema Home Medications Medication Instructions Recorded NK [No Known Home Medication] 03/20/18 Active Medications Albuterol Sulfate (Ventolin 0.083% Nebulizer Soln -) 1 amp NEB Q4H PRN PRN Reason: SHORT OF BREATH/WHEEZING Albuterol/Ipratropium (Duoneb -) 1 amp NEB RQID SUZANNE Last Admin: 03/20/18 16:38 Dose: 1 amp Azithromycin (Zithromax -) 500 mg PO DAILY [facility] Stop: 03/23/18 10:01 Enoxaparin Sodium (Lovenox -) 40 mg SQ DAILY REPLACED BY [facility] Last Admin: 03/20/18 09:45 Dose: 40 mg Methylprednisolone Sodium Succinate (Solu-Medrol -) 40 mg IVPUSH Q6H-IV REPLACED BY [facility] Laboratory Results - last 24 hr 03/19/18 03/19/18 03/19/18 22:50 22:50 22:50 WBC 10.7 H RBC 5.19 Hgb 14.8 Hct 42.7 MCV 82.4 MCH 28.5 MCHC 34.6 RDW 14.0 Plt Count 259 MPV 7.6 Absolute Neuts (auto) 5.6 Neutrophils % 52.9 D Neutrophils % (Manual) Band Neutrophils % Lymphocytes % 30.0 D Lymphocytes % (Manual) Monocytes % 6.9 Monocytes % (Manual) Eosinophils % 9.4 H D Eosinophils % (Manual) Basophils % 0.8 Basophils % (Manual) Myelocytes % (Man) Promyelocytes % (Man) Blast Cells % (Manual) Nucleated RBC % 0 Metamyelocytes Hypochromia Toxic Granulation Dohle Bodies Platelet Estimate Polychromasia Poikilocytosis Basophilic Stippling Anisocytosis Microcytosis Macrocytosis Spherocytes Sickle Cells Target Cells Tear Drop Cells Ovalocytes Stomatocytes Helmet Cells Sims-[place] Bodies [place] Rings [place] Cells Acanthocytes (Spur) Rouleaux Fragmented RBCs Schistocytes Sodium 139 Potassium 4.1 Chloride 103 Carbon Dioxide 27 Anion Gap 9 BUN 15 Creatinine 0.9 Creat Clearance w eGFR > 60 Random Glucose 80 Calcium 9.0 Phosphorus Magnesium Total Bilirubin 1.2 H AST 18 ALT 30 Alkaline Phosphatase 120 H Total Protein 7.4 Albumin 4.2 Influenza A (Rapid) Negative Influenza B (Rapid) Negative 03/20/18 03/20/18 06:00 06:00 WBC 10.2 H RBC 5.13 Hgb 14.1 Hct 42.6 MCV 83.0 MCH 27.5 MCHC 33.1 RDW 14.0 Plt Count 246 MPV 7.7 Absolute Neuts (auto) 9.3 H Neutrophils % 91.0 H D Neutrophils % (Manual) 89.4 H Band Neutrophils % 0.0 Lymphocytes % 7.4 L D Lymphocytes % (Manual) 7.4 L Monocytes % 0.9 L D Monocytes % (Manual) 1 L Eosinophils % 0.4 D Eosinophils % (Manual) 0.0 Basophils % 0.3 Basophils % (Manual) 0.0 Myelocytes % (Man) 0 Promyelocytes % (Man) 0 Blast Cells % (Manual) 0 Nucleated RBC % 0 Metamyelocytes 0 Hypochromia 0 Toxic Granulation 0 Dohle Bodies 0 Platelet Estimate Normal Polychromasia 0 Poikilocytosis 0 Basophilic Stippling 0 Anisocytosis 0 Microcytosis 0 Macrocytosis 0 Spherocytes 0 Sickle Cells 0 Target Cells 0 Tear Drop Cells 0 Ovalocytes 0 Stomatocytes 0 Helmet Cells 0 Sims-[place] Bodies 0 [place] Rings 0 Zach Cells 0 Acanthocytes (Spur) 0 Rouleaux 0 Fragmented RBCs 0 Schistocytes 0 Sodium 140 Potassium 4.0 Chloride 106 Carbon Dioxide 22 Anion Gap 13 BUN 14 Creatinine 1.2 Creat Clearance w eGFR > 60 Random Glucose 188 H Calcium 8.6 Phosphorus 1.2 L Magnesium 2.4 Total Bilirubin AST ALT Alkaline Phosphatase Total Protein Albumin Influenza A (Rapid) Influenza B (Rapid) ASSESSMENT AND PLAN: 27 yom with mild intermittent asthma and morbid obesity here with asthma exacerbation in the setting of recent URI like illness -Acute asthma exacerbation -URI like illness, rapid influenza screen neg -Morbid obesity Plan: slow steroid taper, standing and prn nebs. D/c ceftriaxone, PO azithromycin. Pulmonary consult. Peak flow. Weight loss counseling Outpatient follow up for PFTs/Sleep study. DVTPPX lovenox Dispo in 24-48 hours as breathing improves. Plan discussed with patient in detail, all questions answered.
[2018-03-20] MEDS: methylPREDNISolone NA SUCC 40 MG/1 ML VIAL IVPUSH SCH (18:04)
--- NOTE | 2018-03-20 18:37 | PN ---
Physical Exam: SUBJECTIVE: Patient seen and examined at bedside. Endorses sob this am. Tachycardic overnight. OBJECTIVE: Vital Signs Period Temp Pulse Resp BP Sys/Bright Pulse Ox Last 24 Hr 97.6 F-98.9 F 104-124 20-26 137-150/61-99 93-100 GENERAL: AAOx3, NAD HEAD: NC/AT EYES:EOMI ENT: MMM NECK: Trachea midline, full range of motion, supple. LUNGS: Expiratory wheezing b/l HEART: RRR No MRG S1S2 ABDOMEN:Obese, NTND EXTREMITIES: No CCE NEUROLOGICAL: No gross neurological deficits appreciated PSYCH: Normal mood, normal affect. SKIN: no rashes or lesions appreciated Laboratory Results - last 24 hr 03/19/18 03/19/18 03/19/18 22:50 22:50 22:50 WBC 10.7 H RBC 5.19 Hgb 14.8 Hct 42.7 MCV 82.4 MCH 28.5 MCHC 34.6 RDW 14.0 Plt Count 259 MPV 7.6 Absolute Neuts (auto) 5.6 Neutrophils % 52.9 D Neutrophils % (Manual) Band Neutrophils % Lymphocytes % 30.0 D Lymphocytes % (Manual) Monocytes % 6.9 Monocytes % (Manual) Eosinophils % 9.4 H D Eosinophils % (Manual) Basophils % 0.8 Basophils % (Manual) Myelocytes % (Man) Promyelocytes % (Man) Blast Cells % (Manual) Nucleated RBC % 0 Metamyelocytes Hypochromia Toxic Granulation Dohle Bodies Platelet Estimate Polychromasia Poikilocytosis Basophilic Stippling Anisocytosis Microcytosis Macrocytosis Spherocytes Sickle Cells Target Cells Tear Drop Cells Ovalocytes Stomatocytes Helmet Cells Sims-[place] Bodies [place] Rings [place] Cells Acanthocytes (Spur) Rouleaux Fragmented RBCs Schistocytes Sodium 139 Potassium 4.1 Chloride 103 Carbon Dioxide 27 Anion Gap 9 BUN 15 Creatinine 0.9 Creat Clearance w eGFR > 60 Random Glucose 80 Calcium 9.0 Phosphorus Magnesium Total Bilirubin 1.2 H AST 18 ALT 30 Alkaline Phosphatase 120 H Total Protein 7.4 Albumin 4.2 Influenza A (Rapid) Negative Influenza B (Rapid) Negative 03/20/18 03/20/18 06:00 06:00 WBC 10.2 H RBC 5.13 Hgb 14.1 Hct 42.6 MCV 83.0 MCH 27.5 MCHC 33.1 RDW 14.0 Plt Count 246 MPV 7.7 Absolute Neuts (auto) 9.3 H Neutrophils % 91.0 H D Neutrophils % (Manual) 89.4 H Band Neutrophils % 0.0 Lymphocytes % 7.4 L D Lymphocytes % (Manual) 7.4 L Monocytes % 0.9 L D Monocytes % (Manual) 1 L Eosinophils % 0.4 D Eosinophils % (Manual) 0.0 Basophils % 0.3 Basophils % (Manual) 0.0 Myelocytes % (Man) 0 Promyelocytes % (Man) 0 Blast Cells % (Manual) 0 Nucleated RBC % 0 Metamyelocytes 0 Hypochromia 0 Toxic Granulation 0 Dohle Bodies 0 Platelet Estimate Normal Polychromasia 0 Poikilocytosis 0 Basophilic Stippling 0 Anisocytosis 0 Microcytosis 0 Macrocytosis 0 Spherocytes 0 Sickle Cells 0 Target Cells 0 Tear Drop Cells 0 Ovalocytes 0 Stomatocytes 0 Helmet Cells 0 Sims-[place] Bodies 0 [place] Rings 0 Zach Cells 0 Acanthocytes (Spur) 0 Rouleaux 0 Fragmented RBCs 0 Schistocytes 0 Sodium 140 Potassium 4.0 Chloride 106 Carbon Dioxide 22 Anion Gap 13 BUN 14 Creatinine 1.2 Creat Clearance w eGFR > 60 Random Glucose 188 H Calcium 8.6 Phosphorus 1.2 L Magnesium 2.4 Total Bilirubin AST ALT Alkaline Phosphatase Total Protein Albumin Influenza A (Rapid) Influenza B (Rapid) Active Medications Generic Name Dose Route Start Last Admin Trade Name Freq PRN Reason Stop Dose Admin Albuterol Sulfate 1 amp 03/20/18 15:53 Ventolin 0.083% Nebulizer Soln - NEB Q4H PRN SHORT OF BREATH/WHEEZING Albuterol/Ipratropium 1 amp 03/20/18 16:00 03/20/18 16:38 Duoneb - NEB 1 amp RQID SUZANNE Administration Azithromycin 500 mg 03/21/18 10:00 Zithromax - PO 03/23/18 10:01 DAILY SUZANNE Enoxaparin Sodium 40 mg 03/20/18 10:00 03/20/18 09:45 Lovenox - SQ 40 mg DAILY SUZANNE Administration Methylprednisolone Sodium Succinate 40 mg 03/20/18 18:00 03/20/18 18:04 Solu-Medrol - IVPUSH Not Given Q8H-IV SUZANNE ASSESSMENT/PLAN: 27 y/o M w/ PMHx childhood asthma, untreated w/o prior hospitalizations, p/w cough, SOB x 2 weeks. Admitted for asthma exacerbation and empiric treatment of atypical pneumonia. # Asthma Exacerbation - Steroids tapered down to 40 Q8H - Pre and Post--> No Desaturation upon flat surface walking. - Rocephin D/C'ed, PO Azithro continued - Pulmonary on board- Dr Cook -Peak Flow -Standing and prn nebs. #FEN No Fluids Monitor Electrolytes Regular Diet #DVT ppx: Lovenox 40 SQ Dispo: Med Surg Visit type - Emergency Visit Emergency Visit: Yes ED Registration Date: 03/20/18 Care time: The patient presented to the Emergency Department on the above date and was hospitalized for further evaluation of their emergent condition. - New Patient This patient is new to me today: Yes Date on this admission: 03/20/18 - Critical Care Critical Care patient: No - Discharge Referral Referred to [facility] No
[2018-03-20] MEDS ORDERED: methylPREDNISolone NA SUCC 40 MG/1 ML VIAL IVPUSH SCH (21:00)
[2018-03-21] MEDS: methylPREDNISolone NA SUCC 40 MG/1 ML VIAL IVPUSH SCH (01:32)
[2018-03-21 08:20] LABS: ANION GAP 9 MMOL/L (8-16); BLOOD UREA NITROGEN 17 mg/dL (7-18); CALCIUM 9.1 mg/dL (8.5-10.1); CHLORIDE 106 mmol/L (98-107); CO2 23 mmol/L (21-32); CREATININE 0.8 mg/dL (0.55-1.3); GLUCOSE,RANDOM 163 mg/dL (74-106); MAGNESIUM 2.3 mg/dL (1.8-2.4); PHOSPHOROUS 3.8 mg/dL (2.5-4.9); POTASSIUM 4.7 mmol/L (3.5-5.1); SODIUM 139 mmol/L (136-145)
--- NOTE | 2018-03-21 08:28 | PN ---
Teaching Attending Note Name of Resident: Osmin Graham ATTENDING PHYSICIAN STATEMENT I saw and evaluated the patient. I reviewed the resident's note and discussed the case with the resident. I agree with the resident's findings and plan as documented with exceptions below. SUBJECTIVE: patient seen and examined, breathing improved. OBJECTIVE: Vital Signs Period Temp Pulse Resp BP Sys/Bright Pulse Ox Last 24 Hr 97.6 F-98.7 F 94-118 20-20 137-145/61-71 93-95 Intake & Output 03/18/18 03/19/18 03/20/18 03/21/18 23:59 23:59 23:59 23:59 Intake Total 2590 Balance 2590 Weight 290 lb 279 lb 3 oz general: sitting in bed in no acute distress Chest: improved air entry, no wheezing appreciated today Abdomen: soft, obsese, NT Extremities: no edema Active Medications Albuterol Sulfate (Ventolin 0.083% Nebulizer Soln -) 1 amp NEB Q4H PRN PRN Reason: SHORT OF BREATH/WHEEZING Albuterol/Ipratropium (Duoneb -) 1 amp NEB RQID [facility] Last Admin: 03/20/18 20:40 Dose: 1 amp Azithromycin (Zithromax -) 500 mg PO DAILY [facility] Stop: 03/23/18 10:01 Enoxaparin Sodium (Lovenox -) 40 mg SQ DAILY [facility] Last Admin: 03/20/18 09:45 Dose: 40 mg Prednisone (Deltasone -) 60 mg PO DAILY [facility] Laboratory Results - last 24 hr 03/20/18 03/21/18 06:00 06:30 Neutrophils % (Manual) 89.4 H Band Neutrophils % 0.0 Lymphocytes % (Manual) 7.4 L Monocytes % (Manual) 1 L Eosinophils % (Manual) 0.0 Basophils % (Manual) 0.0 Myelocytes % (Man) 0 Promyelocytes % (Man) 0 Blast Cells % (Manual) 0 Metamyelocytes 0 Hypochromia 0 Toxic Granulation 0 Dohle Bodies 0 Platelet Estimate Normal Polychromasia 0 Poikilocytosis 0 Basophilic Stippling 0 Anisocytosis 0 Microcytosis 0 Macrocytosis 0 Spherocytes 0 Sickle Cells 0 Target Cells 0 Tear Drop Cells 0 Ovalocytes 0 Stomatocytes 0 Helmet Cells 0 Sims-[place] Bodies 0 [place] Rings 0 [place] Cells 0 Acanthocytes (Spur) 0 Rouleaux 0 Fragmented RBCs 0 Schistocytes 0 Sodium 139 Potassium 4.7 Chloride 106 Carbon Dioxide 23 Anion Gap 9 BUN 17 Creatinine 0.8 Creat Clearance w eGFR > 60 Random Glucose 163 H Calcium 9.1 Phosphorus 3.8 Magnesium 2.3 ASSESSMENT AND PLAN: 27 yom with mild intermittent asthma and morbid obesity here with asthma exacerbation in the setting of recent URI like illness -Acute asthma exacerbation -URI like illness, rapid influenza screen neg -Morbid obesity Plan: Improved, change to PO prednisone. Azithromycin day 3/3 Pulmonary consult appreciated.. Peak flow. Weight loss counseling Outpatient follow up for PFTs/Sleep study. DVTPPX lovenox Dispo d/c home on steroid taper and symbicort with outpatient pulmonary followup. Plan discussed with patient in detail, all questions answered.
[2018-03-21 08:58] LABS: HEMOGLOBIN 13.6 GM/dL (11.7-16.9); MCH 26.6 pg (25.7-33.7); MCHC 31.6 g/dl (32.0-35.9); MEAN CELL VOLUME 84.3 fl (80-96); PLATELET COUNT 265 K/MM3 (134-434); RDW 13.9 % (11.9-15.9); WHITE BLOOD COUNT 15.6 K/mm3 (4.0-10.0)
[2018-03-21] MEDS: ALBUTEROL SO4 2.5/IPRATROPIUM 0.5 INH SOL 3 ML VIAL.NEB. NEB SCH ×2 (09:00→12:44)
[2018-03-21] MEDS: ENOXAPARIN NA (PORCINE) 40 MG/0.4 ML DISP.SYRIN SQ SCH (09:10)
[2018-03-21] MEDS ORDERED: predniSONE 20 MG TABLET (UD) PO SCH (10:00)
[2018-03-21] MEDS ORDERED: AZITHROMYCIN 250 MG TABLET PO SCH (10:00)
--- NOTE | 2018-03-21 11:18 | DS ---
Physical Exam: SUBJECTIVE: Patient seen and examined at bedside. No acute events overnight. OBJECTIVE: Vital Signs Period Temp Pulse Resp BP Sys/Bright Pulse Ox Last 24 Hr 97.9 F-98.7 F 94-118 20-20 137-143/62-71 93-93 PHYSICAL EXAM GENERAL: AAOx3 NAD HEAD: Normal with no signs of trauma. EYES: EOMI ENT: MMM NECK: Trachea midline, full range of motion, supple. LUNGS: Lungs are clear, No wheezing HEART: RRR no MRG S1S2 ABDOMEN: Soft NDNT EXTREMITIES: 2+ pulses, warm, well-perfused, no edema. NEUROLOGICAL: No gross neuro def appreciated . LABS Laboratory Results - last 24 hr 03/20/18 03/21/18 03/21/18 06:00 06:30 06:30 WBC 15.6 H RBC 5.10 Hgb 13.6 Hct 43.0 MCV 84.3 MCH 26.6 MCHC 31.6 L RDW 13.9 Plt Count 265 MPV 8.0 Neutrophils % (Manual) 89.4 H Band Neutrophils % 0.0 Lymphocytes % (Manual) 7.4 L Monocytes % (Manual) 1 L Eosinophils % (Manual) 0.0 Basophils % (Manual) 0.0 Myelocytes % (Man) 0 Promyelocytes % (Man) 0 Blast Cells % (Manual) 0 Metamyelocytes 0 Hypochromia 0 Toxic Granulation 0 Dohle Bodies 0 Platelet Estimate Normal Polychromasia 0 Poikilocytosis 0 Basophilic Stippling 0 Anisocytosis 0 Microcytosis 0 Macrocytosis 0 Spherocytes 0 Sickle Cells 0 Target Cells 0 Tear Drop Cells 0 Ovalocytes 0 Stomatocytes 0 Helmet Cells 0 Sims-[place] Bodies 0 [place] Rings 0 Zach Cells 0 Acanthocytes (Spur) 0 Rouleaux 0 Fragmented RBCs 0 Schistocytes 0 Sodium 139 Potassium 4.7 Chloride 106 Carbon Dioxide 23 Anion Gap 9 BUN 17 Creatinine 0.8 Creat Clearance w eGFR > 60 Random Glucose 163 H Calcium 9.1 Phosphorus 3.8 Magnesium 2.3 HOSPITAL COURSE: Date of Admission:03/20/18 Pt admitted to hospital for asthma exacerbation. Pt was placed on antibiotics as PNA was a differential as an inciting cause. Pt also placed on duonebs, symbicort, and steroids. Pre and Post was performed as well and did not reveal any significant desaturation upon flat surface walking. Peak flow measurement was also performed which was also negative. Pt was started on a steroid taper and was told to follow up with pulmonary in 1 week. Date of Discharge: 03/21/18 Minutes to complete discharge: 35 Discharge Summary Reason For Visit: EXACERBATION OF ASTHMA,BRONCHITIS Current Active Problems Asthma exacerbation (Acute) Bronchitis (Acute) Eosinophilia (Acute) Condition: Improved - Instructions Diet, Activity, Other Instructions: You were admitted to the hospital for an asthma exacerbation. You will be sent home on a steroid taper. Please take prednisone according to the following protocol (we will give you 10mg tablets): Prednisone 50 mg for 2 days (5 tablets day 1 and 2) Prednisone 40 mg x 2 days (4 tablets day 3 and 4) Prednisone 30 for 2 days (3 tablets day 5 and 6) Prednisone 20 for 2 days (2 tablets day 7 and 8) Prednisone 10 for 2 days (1 tablet day 9 and 10) THEN STOP We will also prescribe you an albuterol inhaler to use 1-2 puffs every 4 hours ONLY as needed for when you get short of breath Please Follow up with your primary care physician in 1 week. Please Follow up with the Lung Doctor, Dr Cook in 1 week . Discuss outpatient lung function tests, sleep study with Dr. Cook. Encourage weight loss counseling and discussion with your doctor about the same If you experience worsening shortness of breath or chest pain, return to the emergency department immediately and call 911. Referrals: Noman Cook MD [Staff Physician] - 1 Week Jaja Pringle [Primary Care Provider] - 1 Week Disposition: HOME - Home Medications Comprehensive Discharge Medication List: Ambulatory Orders NK [No Known Home Medication] 03/20/18 This patient is new to me today: No Emergency Visit: Yes ED Registration Date: 03/20/18 Care time: The patient presented to the Emergency Department on the above date and was hospitalized for further evaluation of their emergent condition. Critical Care patient: No - Discharge Referral Referred to [facility] No
[2018-03-21 11:39] VITALS: BP 133/55; PULSE 86; TEMP 98.5
--- NOTE | 2018-03-21 12:36 | PN ---
Progress Note (short form) - Note Progress Note: PULMONARY Breathing better, cough and wheezing less. Peak flow done at bedside 550. Vital Signs Period Temp Pulse Resp BP Sys/Bright Pulse Ox Last 24 Hr 97.9 F-98.7 F 86-118 18-20 133-143/55-71 93-93 Intake & Output 03/18/18 03/19/18 03/20/18 03/21/18 23:59 23:59 23:59 23:59 Intake Total 2590 Balance 2590 Weight 131.542 kg 126.637 kg Gen: NAD at rest Heart: RRR Lung: scattered wheezes Abd: soft, nontender Ext: no edema CBC, BMP 03/21/18 06:30 03/21/18 06:30 Active Medications Albuterol Sulfate (Ventolin 0.083% Nebulizer Soln -) 1 amp NEB Q4H PRN PRN Reason: SHORT OF BREATH/WHEEZING Albuterol/Ipratropium (Duoneb -) 1 amp NEB RQID [facility] Last Admin: 03/21/18 09:00 Dose: 1 amp Azithromycin (Zithromax -) 500 mg PO DAILY [facility] Stop: 03/23/18 10:01 Last Admin: 03/21/18 09:10 Dose: 500 mg Enoxaparin Sodium (Lovenox -) 40 mg SQ DAILY [facility] Last Admin: 03/21/18 09:10 Dose: 40 mg Prednisone (Deltasone -) 60 mg PO DAILY [facility] Last Admin: 03/21/18 09:10 Dose: 60 mg A/P Acute Asthma Exacerbation Eosinophilia Likely MAYNOR - agree with prednisone taper - inhaled bronchodilators - monitor peak flow - upon discharge, should be on ICS/LABA until follow up - outpt PFTs, PSG - DVT prophylaxis - d/c planning in progress
== END 2018-03-21 14:40 | disposition home or self-care (01) | DRG 141 ==
LOC: JER 21:48 → JERBED 03-20 00:39 → J5S 03-20 02:48
PROVIDERS: ADMIT Internal Medicine; ATTEND Hospitalist
DX: J45.31 Mild persistent asthma with (acute) exacerbation (principal); Z68.41 Body mass index [BMI] 40.0-44.9, adult; E66.01 Morbid (severe) obesity due to excess calories; D72.1 Eosinophilia; J06.9 Acute upper respiratory infection, unspecified; G47.33 Obstructive sleep apnea (adult) (pediatric)
CPT/HCPCS: 36415; 71046-TC-FY; 80048; 80053; 83735; 84100; 85025; 85027; 87804; 93005; 93010; 94150; 94640; 94761; 99285-25; J7030

== ENCOUNTER 2018-06-16 00:22 | Emergency (ER) | payer OTHER ==
[2018-06-16 01:43] VITALS: BMI 40.1
--- NOTE | 2018-06-16 02:01 | PDOC ---
History of Present Illness - General Chief Complaint: Pain Stated Complaint: ABDOMINAL PAIN Time Seen by Provider: 06/16/18 01:10 History Source: Patient Exam Limitations: No Limitations - History of Present Illness Travel History: No Initial Comments: 06/16/18 01:58 Best Contact:[phone] PCP:Dr. Wolfe Pmhx: 0 Pshx:0 Allergies: NKDA FH:0 Social Hx: Cigarettes/ 0 Alcohol/ 0 Drugs/0 27-year-old male presents to the emergency department with his girlfriend complaining of 9/10 sharp intermittent non radiating right upper quadrant abdominal pain with one bout of nonbloody/nonbilious vomiting yesterday. Patient states the pain started 2 days ago while at rest. The pain is exacerbated after eating and there are no alleviating factors. Patient states he had a bowel movement today: Nonbloody/normal color and consistency. Patient had dinner at approximately 1700 hrs. today/rice, grilled chicken and beans. Patient denies fever, chills, nausea, dizziness, headache, facial pains, chest pain, shortness of breath, flank pains, urinary symptoms. No history of similar symptoms. 06/16/18 05:[address] De Leon consults he wants to go and call outpatient to make an appointment to see him in his office Past History - Past Medical History Allergies/Adverse Reactions: Allergies Allergy/AdvReac Type Severity Reaction Status Date / Time No Known Allergies Allergy Verified 06/16/18 01:43 Home Medications: Ambulatory Orders Albuterol Sulfate Inhaler - [Ventolin HFA Inhaler -] 1 puff IH Q4H PRN #1 inhaler 03/21/18 Budesonide/Formeterol Fumarate [SYMBICORT 80/4.5mcg -] 2 puff IH BID #1 inhaler 03/21/18 Prednisone See Taper PO ASDIR #30 tablet 03/21/18 Asthma: Yes COPD: No - Suicide/Smoking/Psychosocial Hx Smoking History: Current every day smoker Have you smoked in the past 12 months: Yes Number of Cigarettes Smoked Daily: 10 Information on smoking cessation initiated: No Hx Alcohol Use: Yes (Socially) Drug/Substance Use Hx: No Substance Use Type: None Review of Systems - Review of Systems Able to Perform ROS?: Yes Comments:: 06/16/18 02:00 CONSTITUTIONAL: Absent: fever, chills, diaphoresis, generalized weakness, malaise, loss of appetite HEENT: Absent: rhinorrhea, nasal congestion, throat pain, throat swelling, difficulty swallowing, mouth swelling, ear pain, eye pain, visual Changes CARDIOVASCULAR: Absent: chest pain, loss of consciousness, palpitations, irregular heart rate, peripheral edema RESPIRATORY: Absent: cough, shortness of breath, dyspnea with exertion, orthopnea, wheezing, stridor, hemoptysis GASTROINTESTINAL: +RUQ pain Absent: abdominal distension, nausea, vomiting, diarrhea, constipation, melena, hematochezia GENITOURINARY: Absent: dysuria, frequency, urgency, hesitancy, hematuria, flank pain, genital pain MUSCULOSKELETAL: Absent: myalgia, arthralgia, joint swelling SKIN: Absent: rash, itching, pallor HEMATOLOGIC/IMMUNOLOGIC: Absent: easy bleeding, easy bruising, lymphadenopathy, frequent infections ENDOCRINE: Absent: unexplained weight gain, unexplained weight loss, heat intolerance, cold intolerance Is the patient limited Turkmen proficient: No *Physical Exam - Vital Signs Last Vital Signs Temp Pulse Resp BP Pulse Ox 97.9 F 85 16 139/81 97 06/16/18 00:22 06/16/18 00:22 06/16/18 00:22 06/16/18 00:22 06/16/18 00:22 - Physical Exam Comments: 06/16/18 02:00 GENERAL: Well developed, well nourished. Awake and alert. No acute distress. HEENT: Normocephalic, atraumatic. PERRLA, EOMI. No conjunctival pallor. Sclera are non- icteric. Moist mucous membranes. Oropharynx is clear. NECK: Supple. Full ROM. No JVD. Carotid pulses 2+ and symmetric, without bruits. No thyromegaly. No lymphadenopathy. CARDIOVASCULAR: Regular rate and rhythm. No murmurs, rubs, or gallops. Distal pulses are 2+ and symmetric. PULMONARY: No evidence of respiratory distress. Lungs clear to auscultation bilaterally. No wheezing, rales or rhonchi. ABDOMINAL: +RUQ pain on deep palp Soft. Non-distended. No rebound or guarding. No organomegaly. Normoactive bowel sounds. MUSCULOSKELETAL Normal range of motion at all joints. No bony deformities or tenderness. No CVA tenderness. EXTREMITIES: No cyanosis. No clubbing. No edema. No calf tenderness. SKIN: Warm and dry. Normal capillary refill. No rashes. No jaundice. Moderate Sedation - Procedure Monitoring Vital Signs: Procedure Monitoring Vital Signs Temperature 97.9 F 06/16/18 00:22 Pulse Rate 85 06/16/18 00:22 Respiratory Rate 16 06/16/18 00:22 Blood Pressure 139/81 06/16/18 00:22 O2 Sat by Pulse Oximetry (%) 97 06/16/18 00:22 ED Treatment Course - LABORATORY CBC & Chemistry Diagram: 06/16/18 02:54 06/16/18 02:54 - RADIOLOGY Radiology Studies Ordered: Category Date Time Status ABDOMEN US -LIMITED [US] Stat Ultrasound 06/16/18 01:46 Ordered Radiograph Interpretation: 06/16/18 03:04 Ultrasound abdomen: Limited Gallbladder next own to be impacted, but there are no secondary signs of cholecystitis. Mildly fatty liver. CAT scan abdomen limited Gallbladder distention without definite inflammation. Progress Note - Progress Note Progress Note: 0234hrs: pt is comfortable/resting on the stretcher with minimal pain 0355hrs: Pt is still comfortable. Minimal pain on palp to RUQ abd 0511hrs: Pt ambulating in the ER. comfortable 0543hrs: Called Dr. De Leon/surgery *DC/Admit/Observation/Transfer Diagnosis at time of Disposition: Gallstone Qualifiers: Cholecystitis presence: without cholecystitis Biliary obstruction: without biliary obstruction Qualified Code(s): K80.20 - Calculus of gallbladder without cholecystitis without obstruction - Discharge Dispostion Disposition: HOME Condition at time of disposition: Fair - Referrals Referrals: Chandana De Leon MD [Staff Physician] - - Patient Instructions Printed Discharge Instructions: DI for Gallstones Additional Instructions: Be sure to follow-up with the surgeon listed on your discharge Tylenol/Motrin as needed for pain Return back to the ER for severe/persistent or worsening symptoms - Post Discharge Activity
[2018-06-16] MEDS ORDERED: SODIUM CHLORIDE 1,000 ML IV STA (02:04)
[2018-06-16 03:11] LABS: BASO % 1.1 % (0-2.0); EOS % 6.5 % (0-4.5); HEMOGLOBIN 14.2 GM/dL (11.7-16.9); LYMPH % 28.6 % (8-40); MCH 28.9 pg (25.7-33.7); MCHC 34.6 g/dl (32.0-35.9); MEAN CELL VOLUME 83.8 fl (80-96); MEAN PLT VOLUME 7.7 fl (7.5-11.1); MONO % 8.1 % (3.8-10.2); NEUT % 55.7 % (42.8-82.8); PLATELET COUNT 241 K/MM3 (134-434); RBC 4.89 M/mm3 (4.00-5.60); RDW 13.7 % (11.9-15.9); WHITE BLOOD COUNT 12.4 K/mm3 (4.0-10.0)
[2018-06-16 03:45] LABS: ALBUMIN 3.8 g/dl (3.4-5.0); ALK PHOS 106 U/L (45-117); ANION GAP 6 MMOL/L (8-16); BILIRUBIN,TOTAL 0.6 mg/dL (0.2-1); BLOOD UREA NITROGEN 15 mg/dL (7-18); CALCIUM 8.4 mg/dL (8.5-10.1); CHLORIDE 107 mmol/L (98-107); CO2 27 mmol/L (21-32); CREATININE 0.9 mg/dL (0.55-1.3); GLUCOSE,RANDOM 100 mg/dL (74-106); LIPASE 144 U/L (73-393); POTASSIUM 4.4 mmol/L (3.5-5.1); SGOT/AST 14 U/L (15-37); SGPT/ALT 31 U/L (13-61); SODIUM 140 mmol/L (136-145); TOT PROT 6.9 g/dl (6.4-8.2)
[2018-06-16 06:14] VITALS: BP 124/69; PULSE 82; TEMP 98.2
== END 2018-06-16 06:14 | disposition home or self-care (01) ==
LOC: JER 00:22
PROC: 3E0337Z Introduction of Electrolytic and Water Balance Substance into Peripheral Vein, Percutaneous Approach (ICD-10-PCS; principal; 2018-06-16)
DX: K80.20 Calculus of gallbladder without cholecystitis without obstruction (principal); J45.909 Unspecified asthma, uncomplicated; F17.210 Nicotine dependence, cigarettes, uncomplicated
CPT/HCPCS: 36415; 74177-TC; 76705-TC; 80053; 83690; 85025; 96360; 99282-25; J7030

== ENCOUNTER 2018-06-17 16:39 | Inpatient (IN) | payer OTHER ==
--- NOTE | 2018-06-17 16:45 | PDOC ---
Rapid Medical Evaluation Time Seen by Provider: 06/17/18 16:40 Medical Evaluation: Allergies Allergy/AdvReac Type Severity Reaction Status Date / Time No Known Allergies Allergy Verified 06/16/18 01:43 06/17/18 16:41 I have performed a brief in-person evaluation of this patient. The patient presents with a chief complaint of: RUQ pain Pertinent physical exam findings: +Gomez's. RUQ tenderness I have ordered the following: deferred as full abd w/u done within 24hrs The patient will proceed to the ED for further evaluation. Discharge Disposition - Diagnosis Abdominal pain - Referrals - Patient Instructions - Post Discharge Activity
--- NOTE | 2018-06-17 17:45 | PDOC ---
History of Present Illness - General Chief Complaint: Pain, Acute Stated Complaint: SIDE PAIN Time Seen by Provider: 06/17/18 16:40 History Source: Patient Exam Limitations: No Limitations - History of Present Illness Initial Comments: 06/17/18 17:41 27 yr old man with asthma presents with worsening RUQ pain for past 4 days. pt presented to the ED on 06/16/2018 with similar symptoms and was found to have cholelithiasis without acute findings of cholecystitis and dc'd with outpatient f/u with surgery. Since being at home the pain is worse than previous presentation and is exacerbated with food. he ate soup this morning that increased the pain and he vomited all of the soup and continued to have nonbilious nonbloody emesis several times after. a/w diarrhea Pmhx: asthma surghx: denies fmhx: denies sochx: nonsmoker/etoh/drug use travel: none allergies: none medications: none PCP: Dr. Castano Past History - Travel Traveled outside of the country in the last 30 days: No Close contact w/someone who was outside of country & ill: No - Past Medical History Allergies/Adverse Reactions: Allergies Allergy/AdvReac Type Severity Reaction Status Date / Time No Known Allergies Allergy Verified 06/17/18 16:49 Home Medications: Ambulatory Orders Albuterol Sulfate Inhaler - [Ventolin HFA Inhaler -] 1 puff IH Q4H PRN #1 inhaler 03/21/18 Budesonide/Formeterol Fumarate [SYMBICORT 80/4.5mcg -] 2 puff IH BID #1 inhaler 03/21/18 Prednisone See Taper PO ASDIR #30 tablet 03/21/18 Asthma: Yes COPD: No Other medical history: GALLSTONES - Immunization History Immunization Up to Date: Yes - Suicide/Smoking/Psychosocial Hx Smoking History: Never smoked Have you smoked in the past 12 months: Yes Number of Cigarettes Smoked Daily: 10 Information on smoking cessation initiated: No Hx Alcohol Use: No Drug/Substance Use Hx: No Substance Use Type: None Review of Systems - Review of Systems Constitutional: No: Chills, Fever, Malaise, Weakness HEENTM: No: Difficulty Swallowing Respiratory: No: Shortness of Breath, Wheezing, Productive cough Cardiac (ROS): No: Chest Pain, Edema, Irregular Heart Rate, Lightheadedness, Palpitations, Chest Tightness ABD/GI: Yes: Diarrhea, Vomiting, Other (right upper abdominal pain ). No: Abdominal Distended, Nausea Musculoskeletal: No: Back Pain Integumentary: No: Erythema, Flushing, Pruritus, Rash Neurological: Yes: Headache. No: Tingling, Tremors, Weakness, Unsteady Gait, Dizziness *Physical Exam - Vital Signs Last Vital Signs Temp Pulse Resp BP Pulse Ox 97.8 F 75 16 161/87 99 06/17/18 16:44 06/17/18 16:44 06/17/18 16:44 06/17/18 16:44 06/17/18 16:44 - Physical Exam General Appearance: Yes: Appropriately Dressed HEENT: positive: EOMI, YANETH, Pharynx Normal. negative: Tonsillar Erythema Neck: positive: Trachea midline, Normal Thyroid, Supple Respiratory/Chest: positive: Lungs Clear, Normal Breath Sounds. negative: Crackles, Rales, Rhonchi, Wheezing Cardiovascular: positive: Regular Rhythm, Regular Rate. negative: Murmur Gastrointestinal/Abdominal: positive: Flat, Soft, Tenderness (+murphys. neg psoas/obturator b/l. quiet bowel sounds in all four quadrants.). negative: Protuberent, Distended, Guarding, Rebound Musculoskeletal: positive: Normal Inspection. negative: CVA Tenderness, Vertebral Tenderness Extremity: negative: Pedal Edema, Calf Tenderness, Erythema Integumentary: positive: Normal Color, Dry, Warm. negative: Jaundice, Clammy, Diaphoresis, Petechiae, Rash Neurologic: positive: mems device scientist II-XII NML intact, Alert Moderate Sedation - Procedure Monitoring Vital Signs: Procedure Monitoring Vital Signs Temperature 97.8 F 06/17/18 16:44 Pulse Rate 75 06/17/18 16:44 Respiratory Rate 16 06/17/18 16:44 Blood Pressure 161/87 06/17/18 16:44 O2 Sat by Pulse Oximetry (%) 99 06/17/18 16:44 ED Treatment Course - LABORATORY CBC & Chemistry Diagram: 06/17/18 17:55 06/17/18 17:55 Medical Decision Making - Medical Decision Making 06/17/18 17:56 27 yr old man with asthma returns to ED with worsneing RUQ pain for 4 days. recent GI w/u in the ED on 06/16/2018 with cholelithiasis on sono and ct scan. LFT 's normal, labs with mild leucocytosis will repeat labs today to evaluate for dehydration, worsening leucocytosis or liver dysfunction. call placed to GI for MRCP. 06/17/18 18:15 discussed case with GI oncall, Dr. Lindo, recommend IVF, HIDA scan, pain control with dilaudid if needed and will see the patient tomorrow pending labs 06/17/18 18:43 lft's remain normal, elevated alk phos compared to yesterday will likely need obs. PCP is Dr. Castano. 06/17/18 19:01 received call back from Dr. Adair for admission, requests pt be placed under her service in med surg and surgical consult with surgery on-call evaluated by Dr. Lindo, recommend surgical evaluation for biliary colic and Iv antibiotics call placed to dr. Mitchell. pt to be NPO at midnight, IVF, IV abx to be seen tomorrow 06/17/18 19:08 reviewed plan with patient, in agreement to stay. signout endorsed to Dr. Salazar. *DC/Admit/Observation/Transfer Diagnosis at time of Disposition: Abdominal pain - Referrals Referrals: Kassi Castano MD [Primary Care Provider] - - Patient Instructions - Post Discharge Activity
--- NOTE | 2018-06-17 17:54 | PDOC ---
Attending Attestation - HPI HPI: 06/17/18 18:17 The patient is a 27 year old male, with a significant past medical history of asthma, who presents to the emergency department with, 4 days of RUQ pain. Patient was recently evaluated in the ED 06/16 at which time he had an ultrasound and CT with surgery follow-up. He denies any recent chest pain or shortness of breath. He denies any recent dysuria, frequency, urgency or hematuria. Allergies: NKDA <Jag Neri - Last Filed: 06/17/18 18:17> - Resident Resident Name: Miguel Ángel Johnson - ED Attending Attestation I have performed the following: I have examined & evaluated the patient, The case was reviewed & discussed with the resident, I agree w/resident's findings & plan, Exceptions are as noted - HPI HPI: 06/17/18 17:54 this 27 yo male has had RUQ pain for the past 4 days and was here yesterday for the same complaint. He had a gallbladder US and ct scan that showed a 1.3 cm calculus in the gallbladder.Today his symptoms have increases with vomiting and increased zhu - Physicial Exam PE: 06/17/18 18:53 wnwd 27 yo male returns with worsening RUQ pain head ncat neck supple lungs cta b/l cvs [id number] abd RUQ pain,+tenderness no cva tenderness skin warm and dry neuro axox3,ambulatory - Medical Decision Making 06/17/18 18:56 case duscussed w GI Dr Gardner and pt will get HIDA scan,dilaudid for pain and IVF. ADMIT med/surg OBS <Jessica Alfred - Last Filed: 06/17/18 18:57> Attestations - Attestations 06/17/18 18:17 Documentation prepared by Jag Neri, acting as medical operations supervisor for Jessica Alfred MD. <Jag Neri - Last Filed: 06/17/18 18:17>
[2018-06-17 18:07] LABS: BASO % 0.8 % (0-2.0); EOS % 4.1 % (0-4.5); HEMATOCRIT 43.2 % (35.4-49); HEMOGLOBIN 14.9 GM/dL (11.7-16.9); LYMPH % 20.9 % (8-40); MCH 28.8 pg (25.7-33.7); MCHC 34.6 g/dl (32.0-35.9); MEAN CELL VOLUME 83.2 fl (80-96); MEAN PLT VOLUME 7.6 fl (7.5-11.1); MONO % 7.3 % (3.8-10.2); NEUT % 66.9 % (42.8-82.8); PLATELET COUNT 274 K/MM3 (134-434); RBC 5.19 M/mm3 (4.00-5.60); RDW 13.7 % (11.9-15.9); WHITE BLOOD COUNT 11.4 K/mm3 (4.0-10.0)
[2018-06-17] MEDS ORDERED: SODIUM CHLORIDE 1,000 ML IV STA (18:18)
[2018-06-17 18:30] LABS: INR 1.09 (0.83-1.09); PROTHROMBIN TIME (PATIENT) 12.9 SEC (9.7-13.0)
[2018-06-17 18:34] LABS: ALBUMIN 4.1 g/dl (3.4-5.0); ALK PHOS 128 U/L (45-117); ANION GAP 7 MMOL/L (8-16); BILIRUBIN,TOTAL 0.9 mg/dL (0.2-1); BLOOD UREA NITROGEN 10 mg/dL (7-18); CHLORIDE 102 mmol/L (98-107); CO2 28 mmol/L (21-32); CREATININE 0.9 mg/dL (0.55-1.3); GLUCOSE,RANDOM 92 mg/dL (74-106); SGOT/AST 17 U/L (15-37); SGPT/ALT 40 U/L (13-61); SODIUM 137 mmol/L (136-145); TOT PROT 8.4 g/dl (6.4-8.2)
[2018-06-17] MEDS ORDERED: HYDROmorphone HCL CARPU-JECT 2 MG/1 ML DISP.SYRIN IVPUSH ONE (18:51)
[2018-06-17] MEDS ORDERED: PIPERACILLIN/TAZOB 3.375 GM 3.375 GM in DEXTROSE 5%-WATER - 50 ML IVPB ONE (19:06)
[2018-06-17] MEDS ORDERED: SODIUM CHLORIDE 1,000 ML IV SCH (19:15)
[2018-06-17] MEDS ORDERED: HYDROmorphone HCl 2 MG/ML VIAL ONE (19:19)
[2018-06-17] MEDS ORDERED: PIPERACILLIN/TAZOB 3.375 GM 3.375 GM/50 ML BAG IVPB ONE (19:19)
--- NOTE | 2018-06-17 20:03 | HP ---
Admitting History and Physical - Primary Care Physician PCP: Nikky Adair - Admission Chief Complaint: ruq pain History of Present Illness: 27 yr old man with asthma presents with worsening RUQ pain for past 4 days. pt presented to the ED on 06/16/2018 with similar symptoms and was found to have cholelithiasis without acute findings of cholecystitis and dc'd with outpatient f/u with surgery. Since being at home the pain is worse than previous presentation and is exacerbated with food. he ate soup this morning that increased the pain and he vomited all of the soup and continued to have nonbilious nonbloody emesis several times after. a/w diarrhea - Past Medical History Pulmonary: Yes: Asthma - Smoking History Smoking history: Never smoked Have you smoked in the past 12 months: Yes Aproximately how many cigarettes per day: 10 - Alcohol/Substance Use Hx Alcohol Use: No Home Medications - Allergies Allergies/Adverse Reactions: Allergies Allergy/AdvReac Type Severity Reaction Status Date / Time No Known Allergies Allergy Verified 06/17/18 16:49 - Home Medications Home Medications: Ambulatory Orders Albuterol Sulfate Inhaler - [Ventolin HFA Inhaler -] 1 puff IH Q4H PRN #1 inhaler 03/21/18 Budesonide/Formeterol Fumarate [SYMBICORT 80/4.5mcg -] 2 puff IH BID #1 inhaler 03/21/18 Prednisone See Taper PO ASDIR #30 tablet 03/21/18 Physical Examination Vital Signs: Vital Signs Temperature 97.8 F 06/17/18 16:44 Pulse Rate 75 06/17/18 16:44 Respiratory Rate 16 06/17/18 16:44 Blood Pressure 161/87 06/17/18 16:44 O2 Sat by Pulse Oximetry (%) 99 06/17/18 16:44 Constitutional: Yes: No Distress HENT: Yes: Atraumatic Neck: Yes: Supple Cardiovascular: Yes: Regular Rate and Rhythm Respiratory: Yes: CTA Bilaterally Gastrointestinal: Yes: Normal Bowel Sounds Extremities: Yes: WNL Edema: No Peripheral Pulses WNL: Yes Neurological: Yes: Alert, Oriented Labs: CBC, BMP 06/17/18 17:55 06/17/18 17:55 Imaging - Results Cat Scan: Report Reviewed Ultrasound: Report Reviewed Problem List - Problems (1) Abdominal pain Assessment/Plan: prn pain meds npo ivf iv protonix Code(s): R10.9 - UNSPECIFIED ABDOMINAL PAIN (2) Gallstone Assessment/Plan: surgery and gi eval Code(s): K80.20 - CALCULUS OF GALLBLADDER W/O CHOLECYSTITIS W/O OBSTRUCTION Assessment/Plan Laboratory Tests 06/17/18 06/17/18 06/17/18 17:55 17:55 17:55 WBC 11.4 H RBC 5.19 Hgb 14.9 Hct 43.2 MCV 83.2 MCH 28.8 MCHC 34.6 RDW 13.7 Plt Count 274 MPV 7.6 Absolute Neuts (auto) 7.6 Neutrophils % 66.9 D Lymphocytes % 20.9 D Monocytes % 7.3 Eosinophils % 4.1 Basophils % 0.8 Nucleated RBC % 0 PT with INR 12.90 INR 1.09 Sodium 137 Potassium 4.0 Chloride 102 Carbon Dioxide 28 Anion Gap 7 L BUN 10 Creatinine 0.9 Creat Clearance w eGFR > 60 Random Glucose 92 Calcium 9.0 Total Bilirubin 0.9 AST 17 ALT 40 Alkaline Phosphatase 128 H Total Protein 8.4 H Albumin 4.1 Active Medications Generic Name Dose Route Start Last Admin Trade Name Freq PRN Reason Stop Dose Admin Sodium Chloride 1,000 mls @ 100 mls/hr 06/17/18 19:15 06/17/18 19:31 Normal Saline - IV 100 mls/hr ASDIR SUZANNE Administration Active Medications Generic Name Dose Route Start Last Admin Trade Name Freq PRN Reason Stop Dose Admin Fentanyl 50 mcg 06/18/18 15:43 Sublimaze Injection - IVPUSH 06/19/18 03:00 Q5M PRN PAIN-PACU ORDER X 4 DOSES ONLY Hydromorphone HCl 1 mg 06/18/18 07:31 06/18/18 07:57 Dilaudid Vial - IVPB 1 mg Q3H PRN Administration PAIN LEVEL 6-10 Sodium Chloride 1,000 mls @ 100 mls/hr 06/17/18 20:15 06/17/18 21:46 Normal Saline - IV 100 mls/hr ASDIR SUZANNE Administration Piperacillin Sod/Tazobactam 50 mls @ 100 mls/hr 06/18/18 02:00 06/18/18 12:28 Sod 3.375 gm/ Dextrose IVPB 100 mls/hr Q8H-IV SUZANNE Administration Protocol Lactated Ringer's 1,000 mls @ 125 mls/hr 06/18/18 15:45 Lactated Ringers Solution IV ASDIR SUZANNE Ondansetron HCl 4 mg 06/18/18 15:43 Zofran Injection IVPUSH Q6H PRN NAUSEA AND/OR VOMITING Pantoprazole Sodium 40 mg 06/18/18 16:45 Protonix Iv IVPUSH DAILY SUZANNE Promethazine HCl 12.5 mg 06/18/18 15:43 Phenergan Injection - IVPUSH Q6H PRN NAUSEA-FOR RESCUE AFTER 15 MIN
[2018-06-17] MEDS: SODIUM CHLORIDE 1,000 ML IV SCH ×2 (20:16→21:46)
[2018-06-17] MEDS: MORPHINE SULFATE 2 MG/ML VIAL IVPUSH PRN (21:44)
[2018-06-18] MEDS ORDERED: HYDROmorphone HCl 2 MG/ML VIAL IVPB ONE (00:15)
[2018-06-18] MEDS ORDERED: DEXTROSE 5%-WATER - 50 ML IVPB ONE ×3 (00:57→20:11)
[2018-06-18] MEDS ORDERED: PIPERACILLIN/TAZOBACTAM 3.375 GM VIAL IVPB ONE ×3 (00:57→20:10)
[2018-06-18] MEDS: PIPERACILLIN/TAZOB 3.375 GM 3.375 GM in DEXTROSE 5%-WATER - 50 ML IVPB SCH ×4 (01:38→20:14)
[2018-06-18] MEDS: MORPHINE SULFATE 2 MG/ML VIAL IVPUSH PRN ×2 (02:39→06:30)
[2018-06-18 03:04] VITALS: BMI 35.2
[2018-06-18] MEDS ORDERED: HYDROmorphone HCl 2 MG/ML VIAL IVPB PRN ×2 (07:16→07:31)
[2018-06-18 07:28] LABS: EOS % 3.6 % (0-4.5); HEMATOCRIT 39.5 % (35.4-49); HEMOGLOBIN 13.7 GM/dL (11.7-16.9); LYMPH % 16.6 % (8-40); MCH 28.6 pg (25.7-33.7); MCHC 34.6 g/dl (32.0-35.9); MEAN CELL VOLUME 82.5 fl (80-96); MEAN PLT VOLUME 7.5 fl (7.5-11.1); MONO % 7.3 % (3.8-10.2); NEUT % 71.5 % (42.8-82.8); PLATELET COUNT 232 K/MM3 (134-434); RBC 4.79 M/mm3 (4.00-5.60); RDW 13.3 % (11.9-15.9); WHITE BLOOD COUNT 10.7 K/mm3 (4.0-10.0)
[2018-06-18 08:35] LABS: ALBUMIN 3.8 g/dl (3.4-5.0); ALK PHOS 116 U/L (45-117); ANION GAP 9 MMOL/L (8-16); BILIRUBIN,TOTAL 1.6 mg/dL (0.2-1); BLOOD UREA NITROGEN 10 mg/dL (7-18); CHLORIDE 103 mmol/L (98-107); CO2 25 mmol/L (21-32); CREATININE 0.9 mg/dL (0.55-1.3); GLUCOSE,RANDOM 97 mg/dL (74-106); SGOT/AST 34 U/L (15-37); SGPT/ALT 40 U/L (13-61); SODIUM 138 mmol/L (136-145); TOT PROT 5.8 g/dl (6.4-8.2)
--- NOTE | 2018-06-18 09:13 | CONSULT ---
- Consultation REQUESTING PROVIDER: CONSULT REQUEST: We have been asked to surgically evaluate this patient for ( specify). PCP: Nikky Adair HISTORY OF PRESENT ILLNESS: 27 yr old man with asthma c/o worsening RUQ pain and vomiting (nonbilious nonbloody) x 4 days. HE presented to the ED on 06/16/2018 with similar symptoms and was found to have cholelithiasis without acute findings of cholecystitis, he was discharged and told to follow up with outpatient surgery. Since being at home the pain is worse than previous presentation and is exacerbated with food. PCP: Dr. Castano PMHx: Asthma PSHx: Denies Home Medications Medication Instructions Recorded Albuterol Sulfate Inhaler - 1 puff IH Q4H PRN #1 inhaler 03/21/18 [Ventolin HFA Inhaler -] Budesonide/Formeterol Fumarate 2 puff IH BID #1 inhaler 03/21/18 [SYMBICORT 80/4.5mcg -] Prednisone See Taper PO ASDIR #30 tablet 03/21/18 Allergies Allergy/AdvReac Type Severity Reaction Status Date / Time No Known Allergies Allergy Verified 06/17/18 16:49 REVIEW OF SYSTEMS: CONSTITUTIONAL: Absent: fever, diaphoresis, generalized weakness, malaise, weight change +chills, + loss of appetite, CARDIOVASCULAR: Absent: chest pain, syncope, palpitations, irregular heart rate, lightheadedness , peripheral edema RESPIRATORY: Absent: cough, shortness of breath, hemoptysis GASTROINTESTINAL: Absent: abdominal distension, constipation, melena, hematochezia +abdominal pain, +nausea, +vomiting, +diarrhea x1 GENITOURINARY: Absent: dysuria, frequency, urgency, hesitancy, hematuria, flank pain, genital pain MUSCULOSKELETAL: Absent: myalgia, arthralgia, joint swelling, back pain, neck pain SKIN: Absent: rash, itching, pallor HEMATOLOGIC/IMMUNOLOGIC: Absent: easy bleeding, easy bruising, lymphadenopathy NEUROLOGIC: Absent: headache, focal weakness, paresthesias, dizziness, unsteady gait, seizure, mental status changes, bladder or bowel incontinence PSYCHIATRIC: Absent: anxiety, depression, suicidal or homicidal ideation, hallucinations. PHYSICAL EXAM: GENERAL: Awake, alert, and fully oriented, in no acute distress. HEAD: Normal with no signs of trauma. EYES: sclera anicteric, conjunctiva clear. LUNGS: No auditory wheezes, and no accessory muscle use. ABDOMEN: Obese, Soft, non distended, with RUQ and RLQ pain on palpation, + guarding, + rebound, no masses. No organomegaly. MUSCULOSKELETAL: Normal ROM at all joints. No bony deformities or tenderness. No CVA tenderness. UPPER EXTREMITIES: 2+ pulses, warm, well-perfused. No cyanosis. Cap refill <2 seconds. No peripheral edema. LOWER EXTREMITIES: 2+ pulses, warm, well-perfused. No calf tenderness. No peripheral edema. NEUROLOGICAL: Normal speech, gait not observed. PSYCH: Cooperative. Good eye contact. Appropriate mood and affect. SKIN: Warm, dry, normal turgor, no rashes or lesions noted. Vital Signs Temperature 98.5 F 06/18/18 06:00 Pulse Rate 100 H 06/18/18 06:00 Respiratory Rate 18 06/18/18 06:00 Blood Pressure 135/86 06/18/18 06:00 O2 Sat by Pulse Oximetry (%) 100 06/18/18 04:05 Lab Results WBC 10.7 K/mm3 (4.0-10.0) H 06/18/18 07:00 RBC 4.79 M/mm3 (4.00-5.60) 06/18/18 07:00 Hgb 13.7 GM/dL (11.7-16.9) 06/18/18 07:00 Hct 39.5 % (35.4-49) 06/18/18 07:00 MCV 82.5 fl (80-96) 06/18/18 07:00 MCHC 34.6 g/dl (32.0-35.9) 06/18/18 07:00 RDW 13.3 % (11.9-15.9) 06/18/18 07:00 Plt Count 232 K/MM3 (134-434) 06/18/18 07:00 Sodium 138 mmol/L (136-145) 06/18/18 07:00 Potassium 4.0 mmol/L (3.5-5.1) 06/18/18 07:00 Chloride 103 mmol/L (98-107) 06/18/18 07:00 Carbon Dioxide 25 mmol/L (21-32) 06/18/18 07:00 Anion Gap 9 MMOL/L (8-16) 06/18/18 07:00 BUN 10 mg/dL (7-18) 06/18/18 07:00 Creatinine 0.9 mg/dL (0.55-1.3) 06/18/18 07:00 Random Glucose 97 mg/dL (74-106) 06/18/18 07:00 Calcium 9.0 mg/dL (8.5-10.1) 06/18/18 07:00 INR 1.09 (0.83-1.09) 06/17/18 17:[address]: Cholelithiasis Problem List - Problems (1) Cholelithiasis Assessment/Plan: Patient with cholelithiasis nausea and vomiting. 1) NPO for OR -laparoscopic cholecystectomy with Dr Mitchell 2) Pain control 3) Medical optimization 4) DVT and GI prophylaxis Evaluation and plan discussed with Dr Mitchell. Code(s): K80.20 - CALCULUS OF GALLBLADDER W/O CHOLECYSTITIS W/O OBSTRUCTION Visit type - Case Type Case Type: ED Admission - Emergency Emergency Visit: Yes ED Registration Date: 06/17/18 Care time: The patient presented to the Emergency Department on the above date and was hospitalized for further evaluation of their emergent condition. - New patient This patient is new to me today: Yes Date on this admission: 06/18/18
--- NOTE | 2018-06-18 12:43 | CON.ID ---
Consult Consult Specialty:: infectious diseases Referred by:: Reason for Consultation:: ac.choleycystitis - History of Present Illness Chief Complaint: rt upper quadrant pain History of Present Illness: 27 yr old man with asthma presents with worsening RUQ pain for past 4 days. pt presented to the ED on 06/16/2018 with similar symptoms and was found to have cholelithiasis without acute findings of cholecystitis and dc'd with outpatient f/u with surgery. Since being at home the pain is worse than previous presentation and is exacerbated with food. he ate soup this morning that increased the pain and he vomited all of the soup and continued to have nonbilious nonbloody emesis several times after. patient came back to the er and found to have ac choleycystitis and surgery has seen the patient and the plan is to take him to the operating room currently patient with lot of abd pain - History Source History Provided By: Patient Limitations to Obtaining History: No Limitations - Past Medical History Pulmonary: Yes: Asthma - Alcohol/Substance Use Hx Alcohol Use: No - Smoking History Smoking history: Never smoked Have you smoked in the past 12 months: Yes Aproximately how many cigarettes per day: 10 Home Medications - Allergies Allergies/Adverse Reactions: Allergies Allergy/AdvReac Type Severity Reaction Status Date / Time No Known Allergies Allergy Verified 06/17/18 16:49 - Home Medications Home Medications: Ambulatory Orders Albuterol Sulfate Inhaler - [Ventolin HFA Inhaler -] 1 puff IH Q4H PRN #1 inhaler 03/21/18 Budesonide/Formeterol Fumarate [SYMBICORT 80/4.5mcg -] 2 puff IH BID #1 inhaler 03/21/18 Prednisone See Taper PO ASDIR #30 tablet 03/21/18 Review of Systems - Review of Systems Constitutional: reports: No Symptoms Eyes: reports: No Symptoms HENT: reports: No Symptoms Neck: reports: No Symptoms Cardiovascular: reports: No Symptoms Respiratory: reports: No Symptoms Gastrointestinal: reports: Abdominal Pain, Nausea Genitourinary: reports: No Symptoms Musculoskeletal: reports: No Symptoms Integumentary: reports: No Symptoms Neurological: reports: No Symptoms Endocrine: reports: No Symptoms Hematology/Lymphatic: reports: No Symptoms Psychiatric: reports: No Symptoms Physical Exam Vital Signs: Vital Signs Temperature 97.9 F 06/18/18 12:27 Pulse Rate 83 06/18/18 12:27 Respiratory Rate 20 06/18/18 12:27 Blood Pressure 137/81 06/18/18 12:27 O2 Sat by Pulse Oximetry (%) 100 06/18/18 04:05 Constitutional: Yes: Well Nourished, Calm, Moderate Distress Eyes: Yes: Conjunctiva Clear HENT: Yes: Atraumatic, Normocephalic Neck: Yes: Supple, Trachea Midline Cardiovascular: Yes: Regular Rate and Rhythm Respiratory: Yes: Regular, CTA Bilaterally Gastrointestinal: Yes: Soft, Hypoactive Bowel Sounds, Tenderness (ruq) Musculoskeletal: Yes: WNL Extremities: Yes: WNL Neurological: Yes: Alert, Oriented Psychiatric: Yes: Alert, Oriented Labs: CBC, BMP 06/18/18 07:00 06/18/18 07:00 Imaging - Results Other: Report Reviewed, Image Reviewed Assessment/Plan Problem List - Problems (1) Abdominal pain Code(s): R10.9 - UNSPECIFIED ABDOMINAL PAIN (2) Gallstone Code(s): K80.20 - CALCULUS OF GALLBLADDER W/O CHOLECYSTITIS W/O OBSTRUCTION plan will continue abx patient for surgery will see surgical finsings rest as per th eteam
--- NOTE | 2018-06-18 13:58 | EKG ---
Test Reason : Blood Pressure : / mmHG Vent. Rate : 073 BPM Atrial Rate : 073 BPM P-R Int : 144 ms QRS Dur : 094 ms QT Int : 362 ms P-R-T Axes : 035 025 032 degrees QTc Int : 398 ms NORMAL SINUS RHYTHM NORMAL ECG WHEN COMPARED WITH ECG OF 20-MAR-2018 00:47, NO SIGNIFICANT CHANGE WAS FOUND Confirmed by MD Shafer Daniel ([id number]) on 06/18/2018 1:58:43 PM Referred By: Confirmed By:Erik Shafer MD
--- NOTE | 2018-06-18 13:59 | CON.GI ---
Consult Consult Specialty:: GI Referred by:: Hospitalist Service Reason for Consultation:: Abdominal Pain - History of Present Illness Chief Complaint: Right sided abdominal pain History of Present Illness: 27M admistted through [facility] last night for evaluation of abdominal pain. The pain was associated with nausea as well as episodes of vomiting. He had initially been evaluated in the ER this past Sunday, after he had developed significant RUQ pain earlier that morning. Work-up included blood work revealing WBC 12.4 with normal liver chemistries (total bilirubin today is 1.6( , a CT scan of the A/P that revealed a somewhat distended gallbladder abd US revealing a 5mm CBD and cholelithiasis without evidence of acute cholecystitis. He was sent home to follow-up with a surgeon however the pain persisted. He was also sent home on s teroid taper for ? asthma exacerbation. He tried to eat soup last night, the pain worsened significantly and he vomited. He described associated chills. Currently pain persists. He denies similar episodes in the past. He has never had an upper endoscopy or colonoscopy. There is no family history of colorectal cancer or other GI malignancy. - History Source History Provided By: Patient - Past Medical History Pulmonary: Yes: Asthma - Past Surgical History Additional Surgical History: Denies - Alcohol/Substance Use Hx Alcohol Use: No History of Substance Use: reports: None - Smoking History Smoking history: Never smoked Have you smoked in the past 12 months: No Aproximately how many cigarettes per day: 10 - Social History Usual Living Arrangement: With Significant Other (engaged) ADL: Independent Occupation: [employer] of : [employer] [facility] Home Medications - Allergies Allergies/Adverse Reactions: Allergies Allergy/AdvReac Type Severity Reaction Status Date / Time No Known Allergies Allergy Verified 06/17/18 16:49 - Home Medications Home Medications: Ambulatory Orders Albuterol Sulfate Inhaler - [Ventolin HFA Inhaler -] 1 puff IH Q4H PRN #1 inhaler 03/21/18 Budesonide/Formeterol Fumarate [SYMBICORT 80/4.5mcg -] 2 puff IH BID #1 inhaler 03/21/18 Prednisone See Taper PO ASDIR #30 tablet 03/21/18 Family Disease History - Family Disease History Family Disease History: Other: Father (Alive: healthy), Mother (Alive: healthy) , Brother (1, healthy), Sister (1, healthy) Other Family History: No children. No family history of colorectal cancer or other GI malignancy Review of Systems - Review of Systems Constitutional: reports: Chills, Loss of Appetite. denies: Fever, Unintentional Wgt. Loss Cardiovascular: denies: Chest Pain Respiratory: reports: SOB (splinting with deep breaths due to RUQ pain) Gastrointestinal: reports: Abdominal Pain, Bloating, Vomiting. denies: Constipation, Diarrhea, Dysphagia, Melena, Rectal Bleeding, Vomiting Blood Physical Exam-GI Vital Signs: Vital Signs Temperature 97.9 F 06/18/18 12:27 Pulse Rate 83 06/18/18 12:27 Respiratory Rate 20 06/18/18 12:27 Blood Pressure 137/81 06/18/18 12:27 O2 Sat by Pulse Oximetry (%) 100 06/18/18 04:05 Constitutional: Yes: Calm Eyes: No: Sclera Icterus Cardiovascular: Yes: Regular Rate and Rhythm. No: Murmur Respiratory: Yes: CTA Bilaterally Gastrointestinal Inspection: No: Distention, Scars ...Auscultate: Yes: Normoactive Bowel Sounds ...Palpate: Yes: Guarding (voluntary guarding upon palpation of the RUQ), Tenderness (Marked RUQ tenderness to light palpation) ...Percussion: No: Tympanitic Edema: No (No LE edema) Neurological: Yes: Alert Labs: CBC, BMP 06/18/18 07:00 06/18/18 07:00 INR, PTT INR 1.09 (0.83-1.09) 06/17/18 17:55 Hepatic Panel Total Bilirubin 1.6 mg/dL (0.2-1) H 06/18/18 07:00 AST 34 U/L (15-37) 06/18/18 07:00 ALT 40 U/L (13-61) 06/18/18 07:00 Alkaline Phosphatase 116 U/L (45-117) 06/18/18 07:00 Albumin 3.8 g/dl (3.4-5.0) 06/18/18 07:00 Imaging - Results Cat Scan: Report Reviewed Ultrasound: Report Reviewed Problem List - Problems (1) Acute calculous cholecystitis Assessment/Plan: Clinically the patient is present as if he has acute cholecytstitis. The persistence of pain and physical exam findings favors this over biliary colic. Advise: NPO IV Hydration IV Abx (xurrently on zosyn) Surgery following. Plan is for lap ernie today If LFTS continue to rise, consider MRCP to further eval biliary tract Code(s): K80.00 - CALCULUS OF GALLBLADDER W ACUTE CHOLECYST W/O OBSTRUCTION
[2018-06-18] MEDS ORDERED: ROPIVACAINE HCL 0.5% 30ML VIAL ONE (14:43)
[2018-06-18] MEDS ORDERED: MIDAZOLAM HCL 2 MG/2 ML SINGLE DOSE VIAL ONE ×2 (14:44→15:35)
[2018-06-18] MEDS ORDERED: BUPIVACAINE HCL/PF 0.5% (5MG/ML) 10 ML VIAL ONE (15:17)
[2018-06-18] MEDS ORDERED: ceFAZolin SODIUM 1 GM VIAL ONE (15:30)
[2018-06-18] MEDS ORDERED: LIDOCAINE HCL/PF 2% SDV 5ML VIAL ONE (15:30)
[2018-06-18] MEDS ORDERED: KETOROLAC TROMETHAMINE 30 MG/1 ML VIAL ONE (15:30)
[2018-06-18] MEDS ORDERED: SODIUM CHLORIDE 0.9% P/F 10 ML VIAL IJ ONE (15:30)
[2018-06-18] MEDS ORDERED: DEXAMETHASONE SOD PHOSPHATE 4 MG/1 ML VIAL ONE (15:30)
[2018-06-18] MEDS ORDERED: KETAMINE HCL 200 MG/20 ML VIAL ONE (15:34)
[2018-06-18] MEDS ORDERED: ROCURONIUM BROMIDE 50 MG/5 ML VIAL ONE ×2 (15:34→17:01)
[2018-06-18] MEDS ORDERED: PROPOFOL 20 ML ONE ×2 (15:34→16:13)
[2018-06-18] MEDS ORDERED: BENZOIN TINCTURE SWABSTICK TP ONE (15:34)
[2018-06-18] MEDS ORDERED: ONDANSETRON 4 MG/2 ML VIAL IVPUSH PRN ×2 (15:43→18:04)
[2018-06-18] MEDS ORDERED: PROMETHAZINE HCL 25 MG/1 ML VIAL IVPUSH PRN ×2 (15:43→18:04)
[2018-06-18] MEDS ORDERED: LACTATED RINGERS SOLUTION 1,000 ML IV SCH (15:45)
[2018-06-18] MEDS ORDERED: ESMOLOL HCL 100,000 MCG/10 ML VIAL ONE (15:49)
[2018-06-18] MEDS ORDERED: MAGNESIUM SULF 50% (8.12 MEQ/2 ML-1 GM VIAL) ONE (16:03)
[2018-06-18] MEDS ORDERED: BUPIVACAINE HCL/PF 0.5% (5MG/ML) 10 ML VIAL IJ ONE (16:06)
[2018-06-18] MEDS ORDERED: BENZOIN/ALOE VERA/STORAX/TOLU 58 ML BOTTLE TP ONE (16:07)
[2018-06-18] MEDS ORDERED: METOPROLOL TARTRATE 5 MG/5 ML VIAL ONE (16:19)
--- NOTE | 2018-06-18 16:42 | PN ---
Progress Note, Physician - Current Medication List Current Medications: Active Medications Fentanyl (Sublimaze Injection -) 50 mcg IVPUSH Q5M PRN PRN Reason: PAIN-PACU ORDER X 4 DOSES ONLY Stop: 06/19/18 03:00 Hydromorphone HCl (Dilaudid Vial -) 1 mg IVPB Q3H PRN PRN Reason: PAIN LEVEL 6-10 Last Admin: 06/18/18 07:57 Dose: 1 mg Sodium Chloride (Normal Saline -) 1,000 mls @ 100 mls/hr IV ASDIR SU[facility] Last Admin: 06/17/18 21:46 Dose: 100 mls/hr Piperacillin Sod/Tazobactam (Sod 3.375 gm/ Dextrose) 50 mls @ 100 mls/hr IVPB Q8H-IV [facility]; Protocol Last Admin: 06/18/18 12:28 Dose: 100 mls/hr Lactated Ringer's (Lactated Ringers Solution) 1,000 mls @ 125 mls/hr IV ASDIR SU[facility] Ondansetron HCl (Zofran Injection) 4 mg IVPUSH Q6H PRN PRN Reason: NAUSEA AND/OR VOMITING Pantoprazole Sodium (Protonix Iv) 40 mg IVPUSH DAILY [facility] Promethazine HCl (Phenergan Injection -) 12.5 mg IVPUSH Q6H PRN PRN Reason: NAUSEA-FOR RESCUE AFTER 15 MIN - Objective Vital Signs: Vital Signs Temperature 97.9 F 06/18/18 12:27 Pulse Rate 83 06/18/18 12:27 Respiratory Rate 20 06/18/18 12:27 Blood Pressure 137/81 06/18/18 12:27 O2 Sat by Pulse Oximetry (%) 100 06/18/18 04:05 Constitutional: Yes: No Distress HENT: Yes: Atraumatic Neck: Yes: Supple Cardiovascular: Yes: Regular Rate and Rhythm Respiratory: Yes: CTA Bilaterally Gastrointestinal: Yes: Normal Bowel Sounds Extremities: Yes: WNL Labs: CBC, BMP 06/18/18 07:00 06/18/18 07:00 INR, PTT INR 1.09 (0.83-1.09) 06/17/18 17:55 Problem List - Problems (1) Abdominal pain Assessment/Plan: prn pain meds npo ivf iv protonix Code(s): R10.9 - UNSPECIFIED ABDOMINAL PAIN (2) Gallstone Assessment/Plan: for OR today Code(s): K80.20 - CALCULUS OF GALLBLADDER W/O CHOLECYSTITIS W/O OBSTRUCTION
[2018-06-18] MEDS ORDERED: PANTOPRAZOLE SODIUM 40 MG VIAL IVPUSH SCH (16:45)
[2018-06-18] MEDS ORDERED: GLYCOPYRROLATE 0.2 MG/1 ML VIAL ONE (17:13)
[2018-06-18] MEDS ORDERED: NEOSTIGMINE METHYLSULFATE 0.5 MG/ML - 10 ML MDV ONE (17:16)
--- NOTE | 2018-06-18 17:48 | OP ---
Operative Note - Note: Operative Date: 06/18/18 Pre-Operative Diagnosis: acute cholecystitis/cholelithiasis Operation: laparoscopic cholecystectomy Findings: hydrops of the gallbladder; acute cholecystitis/cholelithiasis Post-Operative Diagnosis: Same as Pre-op Surgeon: Philippe Mitchell Judicial Assistant: Jad Wheatley Anesthesiologist/HOT IRON WORKER: Dimitri Esquivel Anesthesia: General Specimens Removed: gallbladder and contents Estimated Blood Loss (mls): 50 Drains & Tubes with Location: 10 mm HARRISON gallbladder fossa
[2018-06-18] MEDS ORDERED: ACETAMINOPHEN 1000 MG/100 ML VIAL (NON FORMULARY) IVPB ONE ×2 (17:59→18:15)
--- NOTE | 2018-06-18 18:01 | SURG ---
Surgery Route Salesman Note Route Salesman: Jad Wheatley PA-C Date of Service: 06/18/18 Diagnosis: acute cholecystitis/cholelithiasis; Hydrops Procedure: Laparoscopic cholecystectomy I was present for the entirety of the operative procedure. For further detail, please refer to operative report. Visit type - Case Type Case Type: ED Admission - Emergency Emergency Visit: Yes ED Registration Date: 06/17/18 Care time: The patient presented to the Emergency Department on the above date and was hospitalized for further evaluation of their emergent condition. - New patient This patient is new to me today: Yes Date on this admission: 06/18/18
[2018-06-18] MEDS ORDERED: ACETAMINOPHEN INJECTION 100 ML IVPB ONE (18:06)
[2018-06-18] MEDS: SODIUM CHLORIDE 1,000 ML IV SCH (22:57)
[2018-06-18] MEDS: HYDROmorphone HCl 2 MG/ML VIAL IVPB PRN (23:09)
[2018-06-19] MEDS: LACTATED RINGERS SOLUTION 1,000 ML IV SCH ×2 (01:27→19:40)
[2018-06-19] MEDS: SODIUM CHLORIDE 1,000 ML IV SCH ×3 (01:28→19:40)
[2018-06-19] MEDS: PIPERACILLIN/TAZOB 3.375 GM 3.375 GM in DEXTROSE 5%-WATER - 50 ML IVPB SCH ×2 (02:46→10:35)
[2018-06-19] MEDS: HYDROmorphone HCl 2 MG/ML VIAL IVPB PRN (03:41)
[2018-06-19 07:19] LABS: BASO % 0.3 % (0-2.0); EOS % 0.1 % (0-4.5); HEMATOCRIT 39.1 % (35.4-49); HEMOGLOBIN 13.4 GM/dL (11.7-16.9); LYMPH % 14.8 % (8-40); MCH 28.3 pg (25.7-33.7); MCHC 34.3 g/dl (32.0-35.9); MEAN CELL VOLUME 82.7 fl (80-96); MEAN PLT VOLUME 7.6 fl (7.5-11.1); NEUT % 75.8 % (42.8-82.8); PLATELET COUNT 266 K/MM3 (134-434); RBC 4.73 M/mm3 (4.00-5.60); RDW 13.6 % (11.9-15.9)
[2018-06-19 07:37] LABS: AMYLASE 29 U/L (25-115); LIPASE 61 U/L (73-393)
[2018-06-19 07:43] LABS: ALBUMIN 3.6 g/dl (3.4-5.0); ALK PHOS 109 U/L (45-117); ANION GAP 8 MMOL/L (8-16); BILIRUBIN,TOTAL 1.7 mg/dL (0.2-1); BLOOD UREA NITROGEN 9 mg/dL (7-18); CALCIUM 8.8 mg/dL (8.5-10.1); CHLORIDE 103 mmol/L (98-107); CO2 27 mmol/L (21-32); CREATININE 0.9 mg/dL (0.55-1.3); GLUCOSE,RANDOM 112 mg/dL (74-106); POTASSIUM 4.5 mmol/L (3.5-5.1); SGOT/AST 44 U/L (15-37); SGPT/ALT 80 U/L (13-61); SODIUM 138 mmol/L (136-145); TOT PROT 6.2 g/dl (6.4-8.2)
[2018-06-19] MEDS ORDERED: PIPERACILLIN/TAZOBACTAM 3.375 GM VIAL IVPB ONE (10:31)
[2018-06-19] MEDS ORDERED: DEXTROSE 5%-WATER - 50 ML IVPB ONE (10:31)
[2018-06-19] MEDS: PANTOPRAZOLE SODIUM 40 MG VIAL IVPUSH SCH (11:10)
[2018-06-19] MEDS: oxyCODONE HCL 5 MG TABLET PO PRN (11:26)
--- NOTE | 2018-06-19 11:49 | PN ---
Progress Note (short form) - Note Progress Note: POD 1 laparoscopic cholecystectomy Pt seen and examined. States he is feeling well. Had some pain this morning, resolved without pain meds. Pain returning now, requesting pain control (RN made aware). Has been oob, voiding without issue. Tolerating PO. Denies n/v/d, calf pain/edema. Vital Signs Temp 97.9 F 06/19/18 06:00 Pulse 106 H 06/19/18 06:00 Resp 20 06/19/18 06:00 BP 129/86 06/19/18 06:00 Pulse Ox 95 06/18/18 20:00 Intake & Output 06/18/18 06/18/18 06/19/18 11:59 23:59 11:59 Intake Total 50 2450 1200 Output Total 140 1165 Balance 50 2310 35 Intake: IV 2300 1200 Lactated Ringers Solution 500 1,000 ml @ 125 mls/hr IV ASDIR SUZANNE Rx#: [id number] Normal Saline - 1,000 ml 500 700 @ 100 mls/hr IV ASDIR SUZANNE Rx#:[id number] IVPB 50 150 Oral 0 0 Output: Drainage 90 65 Right 65 Urine 1100 Void 1100 Estimated Blood Loss 50 Other: Voiding Method Toilet Toilet Urinal # Unmeasured Voids Void 1 2 Bowel Movement No No CBC, BMP 06/19/18 06:20 06/19/18 06:20 Gen: awake alert, nad, sitting up in chair. Resp: unlabored on RA Abdo: soft, nondistended, minimally tender to palpation at incision sites, dressings c/d/i. HARRISON in place minimal serosanguinous drainage in reservoir. Tubing stripped. A/P: 27 y/o M w/ no pmhx a/d abdominal pain, found to have acute cholecystitis/ cholelithiasis, now POD 1, s/p laparoscopic cholecystectomy. Doing well post op. Tolerating PO Labs stable, VSS. HARRISON drainage 25ml overnight -Keep HARRISON in place, monitor and record output -Pain control, Oxycodone 5mg ordered -OOB ad paulette -Reg diet -Continue abx -Plan per primary team d/w attending Dr Mitchell
--- NOTE | 2018-06-19 11:56 | PN ---
Progress Note, Physician Chief Complaint: S/P cholecystectomy History of Present Illness: Doing well POD #1 s/p laparascopic cholecystectomy yesterday for cholecystitis. Mild pain at small incision sites and drain site. No fever, sweats, chill. - Current Medication List Current Medications: Active Medications Hydromorphone HCl (Dilaudid Vial -) 1 mg IVPB Q3H PRN PRN Reason: PAIN LEVEL 6-10 Last Admin: 06/19/18 03:41 Dose: 1 mg Lactated Ringer's (Lactated Ringers Solution) 1,000 mls @ 125 mls/hr IV ASDIR [facility] Last Admin: 06/19/18 01:27 Dose: Not Given Sodium Chloride (Normal Saline -) 1,000 mls @ 100 mls/hr IV ASDIR [facility] Last Admin: 06/19/18 01:28 Dose: Not Given Piperacillin Sod/Tazobactam (Sod 3.375 gm/ Dextrose) 50 mls @ 100 mls/hr IVPB Q8H-IV [facility]; Protocol Last Admin: 06/19/18 10:35 Dose: 100 mls/hr Ondansetron HCl (Zofran Injection) 4 mg IVPUSH Q6H PRN PRN Reason: NAUSEA AND/OR VOMITING Oxycodone HCl (Roxicodone -) 5 mg PO Q4H PRN PRN Reason: PAIN LEVEL 1-5 Last Admin: 06/19/18 11:26 Dose: 5 mg Pantoprazole Sodium (Protonix Iv) 40 mg IVPUSH DAILY [facility] Last Admin: 06/19/18 11:10 Dose: 40 mg Promethazine HCl (Phenergan Injection -) 12.5 mg IVPUSH Q6H PRN PRN Reason: NAUSEA-FOR RESCUE AFTER 15 MIN - Objective Vital Signs: Vital Signs Temperature 97.9 F 06/19/18 06:00 Pulse Rate 106 H 06/19/18 06:00 Respiratory Rate 20 06/19/18 06:00 Blood Pressure 129/86 06/19/18 06:00 O2 Sat by Pulse Oximetry (%) 95 06/18/18 20:00 Constitutional: Yes: No Distress Cardiovascular: Yes: Regular Rate and Rhythm Respiratory: Yes: Regular, CTA Bilaterally Gastrointestinal: Yes: Normal Bowel Sounds, Soft. No: Tenderness Labs: CBC, BMP 06/19/18 06:20 06/19/18 06:20 INR, PTT INR 1.09 (0.83-1.09) 06/17/18 17:55 Problem List - Problems (1) Cholelithiasis Code(s): K80.20 - CALCULUS OF GALLBLADDER W/O CHOLECYSTITIS W/O OBSTRUCTION Qualifiers: Cholecystitis acuity: acute
--- NOTE | 2018-06-19 12:19 | PN ---
Progress Note, Physician History of Present Illness: patient still with pain but now much better post op tolerating diet - Current Medication List Current Medications: Active Medications Hydromorphone HCl (Dilaudid Vial -) 1 mg IVPB Q3H PRN PRN Reason: PAIN LEVEL 6-10 Last Admin: 06/19/18 03:41 Dose: 1 mg Lactated Ringer's (Lactated Ringers Solution) 1,000 mls @ 125 mls/hr IV ASDIR [facility] Last Admin: 06/19/18 01:27 Dose: Not Given Sodium Chloride (Normal Saline -) 1,000 mls @ 100 mls/hr IV ASDIR [facility] Last Admin: 06/19/18 01:28 Dose: Not Given Piperacillin Sod/Tazobactam (Sod 3.375 gm/ Dextrose) 50 mls @ 100 mls/hr IVPB Q8H-IV [facility]; Protocol Last Admin: 06/19/18 10:35 Dose: 100 mls/hr Ondansetron HCl (Zofran Injection) 4 mg IVPUSH Q6H PRN PRN Reason: NAUSEA AND/OR VOMITING Oxycodone HCl (Roxicodone -) 5 mg PO Q4H PRN PRN Reason: PAIN LEVEL 1-5 Last Admin: 06/19/18 11:26 Dose: 5 mg Pantoprazole Sodium (Protonix Iv) 40 mg IVPUSH DAILY [facility] Last Admin: 06/19/18 11:10 Dose: 40 mg Promethazine HCl (Phenergan Injection -) 12.5 mg IVPUSH Q6H PRN PRN Reason: NAUSEA-FOR RESCUE AFTER 15 MIN - Objective Vital Signs: Vital Signs Temperature 97.9 F 06/19/18 06:00 Pulse Rate 106 H 06/19/18 06:00 Respiratory Rate 20 06/19/18 06:00 Blood Pressure 129/86 06/19/18 06:00 O2 Sat by Pulse Oximetry (%) 95 06/18/18 20:00 Constitutional: Yes: No Distress, Calm Cardiovascular: Yes: Regular Rate and Rhythm Respiratory: Yes: Regular, CTA Bilaterally Gastrointestinal: Yes: Normal Bowel Sounds, Soft Musculoskeletal: Yes: WNL Extremities: Yes: WNL Wound/Incision: Yes: Open to air, Dressing Dry and Intact Neurological: Yes: Alert, Oriented Psychiatric: Yes: Alert, Oriented Labs: CBC, BMP 06/19/18 06:20 03/06/19 06:20 INR, PTT INR 1.09 (0.83-1.09) 06/17/18 17:55 Assessment/Plan Problem List - Problems (1) Abdominal pain Code(s): R10.9 - UNSPECIFIED ABDOMINAL PAIN (2) Gallstone Code(s): K80.20 - CALCULUS OF GALLBLADDER W/O CHOLECYSTITIS W/O OBSTRUCTION plan will change to oral abx rest continue as per the team patient stable once patient stable can stop abx
[2018-06-19] MEDS: AMOX TR/POT CLAV 875MG/125MG TABLETS (FP) PO SCH (17:44)
--- NOTE | 2018-06-19 18:10 | PN ---
Progress Note, Physician - Current Medication List Current Medications: Active Medications Amoxicillin/Clavulanate Potassium (Augmentin - 875mg Tablet) 1 tab PO BID@0800, 1730 [facility] Last Admin: 06/19/18 17:44 Dose: 1 tab Hydromorphone HCl (Dilaudid Vial -) 1 mg IVPB Q3H PRN PRN Reason: PAIN LEVEL 6-10 Last Admin: 06/19/18 03:41 Dose: 1 mg Lactated Ringer's (Lactated Ringers Solution) 1,000 mls @ 125 [facility]ls[facility]hr [facility] Last Admin: 06/19/18 01:27 Dose: Not Given Sodium Chloride (Normal Saline -) 1,000 mls @ 100 mls/hr IV [facility] Last Admin: 06/19/18 12:50 Dose: 100 mls/hr Ondansetron HCl (Zofran Injection) 4 mg IVPUSH Q6H PRN PRN Reason: NAUSEA AND/OR VOMITING Oxycodone HCl (Roxicodone -) 5 mg PO Q4H PRN PRN Reason: PAIN LEVEL 1-5 Last Admin: 06/19/18 11:26 Dose: 5 mg Pantoprazole Sodium (Protonix Iv) 40 mg IVPUSH DAILY [facility] Last Admin: 06/19/18 11:10 Dose: 40 mg Promethazine HCl (Phenergan Injection -) 12.5 mg IVPUSH Q6H PRN PRN Reason: NAUSEA-FOR RESCUE AFTER 15 MIN - Objective Vital Signs: Vital Signs Temperature 98 F 06/19/18 13:31 Pulse Rate 98 H 06/19/18 13:31 Respiratory Rate 19 06/19/18 13:31 Blood Pressure 134/71 06/19/18 13:31 O2 Sat by Pulse Oximetry (%) 95 06/18/18 20:00 Constitutional: Yes: No Distress HENT: Yes: Atraumatic Neck: Yes: Supple Cardiovascular: Yes: Regular Rate and Rhythm Respiratory: Yes: CTA Bilaterally Gastrointestinal: Yes: Tenderness (at the surgery site drin in place) Extremities: Yes: WNL Edema: No Peripheral Pulses WNL: Yes Labs: CBC, BMP 06/19/18 06:20 06/19/18 06:20 INR, PTT INR 1.09 (0.83-1.09) 06/17/18 17:55 Problem List - Problems (1) Abdominal pain Assessment/Plan: s/p surgery prn pain meds resume diet as tolerated Code(s): R10.9 - UNSPECIFIED ABDOMINAL PAIN (2) Gallstone Assessment/Plan: surgery done Code(s): K80.20 - CALCULUS OF GALLBLADDER W/O CHOLECYSTITIS W/O OBSTRUCTION
[2018-06-20] MEDS: oxyCODONE HCL 5 MG TABLET PO PRN ×3 (01:10→22:11)
[2018-06-20] MEDS: AMOX TR/POT CLAV 875MG/125MG TABLETS (FP) PO SCH ×2 (08:54→17:54)
[2018-06-20] MEDS: PANTOPRAZOLE SODIUM 40 MG VIAL IVPUSH SCH (10:18)
--- NOTE | 2018-06-20 10:40 | PN ---
Progress Note (short form) - Note Progress Note: Attending Surgeon POD #2 Mild RUQ pain w/movement; tolerating diet; o/w no c/o. VSS AF abdo-soft; tender at epigastric port site; HARRISON serosanguinous yesterdays labs noted; non done today. HARRISON 30 cc's IMP: doing well PLAN: Check CBC/LFT's today; if OK will pull drain and anticipate d/c 06/21/18. Philippe Mitchell MD FACS
--- NOTE | 2018-06-20 11:28 | OP ---
DATE OF OPERATION: 06/18/2018 PREOPERATIVE DIAGNOSIS: Acute cholecystitis, cholelithiasis. POSTOPERATIVE DIAGNOSIS: Acute cholecystitis, cholelithiasis. PROCEDURE: Laparoscopic cholecystectomy. SURGEON: Philippe Mitchell MD HEADING MATCHER AND ASSEMBLER: Jad Wheatley PA-C ANESTHESIA: General. OPERATIVE FINDINGS: There was hydrops of the gallbladder and acute cholecystitis and cholelithiasis. The rest of the findings were unremarkable. DESCRIPTION OF PROCEDURE: The patient was placed on the operating table in the supine position and after the induction of general anesthesia the patient's abdomen was prepped with ChloraPrep and draped in sterile fashion. A timeout was taken and pneumoperitoneum established above the umbilicus using a Veress needle. Once 15 mmHg of pressure were obtained, a 5-mm port was placed at the umbilicus and additional lateral 5-mm ports and a subxiphoid 12-mm port. Laparoscopy was carried out and the previously noted findings were observed. Dissection was begun at the neck of the gallbladder where the peritoneum was opened medially and laterally using blunt dissection and electrocautery. The cystic duct was identified coursing from the neck of the gallbladder towards the common bile duct and it was dissected using blunt dissection proximally and distally for length. Similarly, the artery was identified and dissected proximally and distally for length. A critical view of safety was taken and then the duct and the artery were clipped twice proximally and twice distally with large hemoclips. The duct and artery were then serially divided using Endoshears. Hemostasis was checked for and noted to be good and then the gallbladder was removed from the liver bed in a retrograde fashion using electrocautery. Prior to removal from the edge of the liver, hemostasis in the liver bed was again checked for and noted to be good and then the gallbladder removed from the edge of the liver, placed in an EndoCatch , and brought out through the subxiphoid port. Pneumoperitoneum was reestablished. Copious irrigation was carried out with saline. Hemostasis was verified again. A 10-mm Boo-Chavarria drain was placed in the right hepatorenal fossa and brought out through 1 of the 5-mm ports and secured to the skin with 2-0 silk suture. All port sites were removed under laparoscopic vision without evidence of bleeding from the port sites. The port sites were infiltrated with 0.5% Marcaine and the skin edges reapproximated with 4-0 Biosyn in a subcuticular continuous fashion. Steri-Strips and Band-Aid dressings were placed. The drain was connected to bulb suction and then the patient aroused from general anesthesia and transferred to the postanesthesia care unit in stable condition, awake and alert. ESTIMATED BLOOD LOSS: 50 mL. REPLACEMENT: Crystalloid. DRAINS: One 10-mm Boo-Chavarria in the gallbladder fossa. SPECIMEN: Gallbladder and contents to Pathology. I, Philippe Mitchell, was physically present in the operating room from the time the patient was placed on the operating table until he was transferred to the post-anesthesia care unit in my accompaniment. MD FRANDY Crowley/[id number] MTDD
[2018-06-20 12:00] LABS: BASO % 0.9 % (0-2.0); EOS % 3.8 % (0-4.5); HEMATOCRIT 37.8 % (35.4-49); HEMOGLOBIN 13.1 GM/dL (11.7-16.9); MCHC 34.6 g/dl (32.0-35.9); MEAN CELL VOLUME 84.1 fl (80-96); MEAN PLT VOLUME 7.5 fl (7.5-11.1); MONO % 10.8 % (3.8-10.2); NEUT % 52.5 % (42.8-82.8); PLATELET COUNT 221 K/MM3 (134-434); RDW 13.6 % (11.9-15.9); WHITE BLOOD COUNT 7.4 K/mm3 (4.0-10.0)
[2018-06-20 12:26] LABS: ALBUMIN 3.5 g/dl (3.4-5.0); ALK PHOS 94 U/L (45-117); ANION GAP 7 MMOL/L (8-16); BILIRUBIN,TOTAL 0.9 mg/dL (0.2-1); BLOOD UREA NITROGEN 12 mg/dL (7-18); CALCIUM 8.7 mg/dL (8.5-10.1); CHLORIDE 104 mmol/L (98-107); CO2 29 mmol/L (21-32); CREATININE 0.9 mg/dL (0.55-1.3); GLUCOSE,RANDOM 87 mg/dL (74-106); SGOT/AST 27 U/L (15-37); SGPT/ALT 61 U/L (13-61); SODIUM 140 mmol/L (136-145); TOT PROT 6.3 g/dl (6.4-8.2)
--- NOTE | 2018-06-20 15:19 | PN ---
GI Progress Note Subjective: No acute events S/P Lap Marlen POD 2 HARRISON drain just removed by surgical team - Objective Vital Signs: Vital Signs Temperature 98.1 F 06/20/18 14:38 Pulse Rate 73 06/20/18 14:38 Respiratory Rate 20 06/20/18 14:38 Blood Pressure 134/74 06/20/18 14:38 O2 Sat by Pulse Oximetry (%) 96 06/20/18 04:00 Constitutional: Calm Eyes: No: Sclera Icterus Cardiovascular: Yes: Regular Rate and Rhythm Gastrointestinal Inspection: Yes: Scars (dressed trochar scars). No: Distention ...Auscultate: Yes: Normoactive Bowel Sounds ...Palpate: Yes: Tenderness (at trochar sites) ...Percussion: No: Tympanitic Edema: No (No LE edema) Neurological: Yes: Alert, Oriented Labs: CBC, BMP 06/20/18 11:35 06/20/18 11:35 INR, PTT INR 1.09 (0.83-1.09) 06/17/18 17:55 Problem List - Problems (1) Acute calculous cholecystitis Assessment/Plan: POD 2 Doing well LFTs improved Will sign off now. Post op care per surgery Code(s): K80.00 - CALCULUS OF GALLBLADDER W ACUTE CHOLECYST W/O OBSTRUCTION
--- NOTE | 2018-06-20 15:32 | PN ---
Progress Note (short form) - Note Progress Note: HARRISON drain removed per attending. Drain taken off of suction and removed without issue. Ostium dressed with 4x4 gauze and tegaderm. Pt tolerated well. Plan for d /c 06/21. d/w attending Dr Mitchell
--- NOTE | 2018-06-20 17:32 | PATH ---
Surgical Pathology Report Patient Name: ANDREINA RIZO Med. Rec. #: [id number] /Age/Gender: 1990 (Age: 27) / M Account: [id number] Location: [address] [place] [address]/[facility] Taken: 06/18/2018 Received: 06/19/2018 Reported: 06/20/2018 Physicians: MD Nikky Davies M.D. Specimen(s) Received GALLBLADDER Clinical History Acute cholecystitis Final Diagnosis GALLBLADDER, LAPAROSCOPIC CHOLECYSTECTOMY: ACUTE AND CHRONIC HEMORRHAGIC CHOLECYSTITIS WITH CHOLELITHIASIS. Electronically Signed Siomara Resendiz M.D. Gross Description Received in formalin, labeled "gallbladder," is an 11.0 x 3.7 x 3.5 cm. gallbladder with a 0.2 cm. in length portion of cystic duct attached. The outer surface is corral purple with attached exudate and varies from smooth to shaggy. The lumen contains red blood and mucinous bile as well as a 3.0 cm in greatest dimension randall, ovoid cholelith. The mucosa is hyperemic and focally eroded. The wall of the gallbladder ranges from 0.1-0.5 cm. in thickness. [employer] sections are submitted in one cassette. 06/19/201806/19/2018
--- NOTE | 2018-06-20 18:51 | PN ---
Progress Note, Physician History of Present Illness: doing well - Current Medication List Current Medications: Active Medications Amoxicillin/Clavulanate Potassium (Augmentin - 875mg Tablet) 1 tab PO BID@0800, 1730 [facility] Last Admin: 06/20/18 17:54 Dose: 1 tab Hydromorphone HCl (Dilaudid Vial -) 1 mg IVPB Q3H PRN PRN Reason: PAIN LEVEL 6-10 Last Admin: 06/19/18 03:41 Dose: 1 mg Ondansetron HCl (Zofran Injection) 4 mg IVPUSH Q6H PRN PRN Reason: NAUSEA AND/OR VOMITING Oxycodone HCl (Roxicodone -) 5 mg PO Q4H PRN PRN Reason: PAIN LEVEL 1-5 Last Admin: 06/20/18 08:59 Dose: 5 mg Pantoprazole Sodium (Protonix Iv) 40 mg IVPUSH DAILY [facility] Last Admin: 06/20/18 10:18 Dose: 40 mg Promethazine HCl (Phenergan Injection -) 12.5 mg IVPUSH Q6H PRN PRN Reason: NAUSEA-FOR RESCUE AFTER 15 MIN - Objective Vital Signs: Vital Signs Temperature 998.7 F H 06/20/18 18:00 Pulse Rate 83 06/20/18 18:00 Respiratory Rate 20 06/20/18 18:00 Blood Pressure 132/66 06/20/18 18:00 O2 Sat by Pulse Oximetry (%) 96 06/20/18 04:00 Constitutional: Yes: No Distress HENT: Yes: Atraumatic Neck: Yes: Supple Cardiovascular: Yes: Regular Rate and Rhythm Respiratory: Yes: CTA Bilaterally Gastrointestinal: Yes: Normal Bowel Sounds, Other (drain is taken out) Extremities: Yes: WNL Edema: No Peripheral Pulses WNL: Yes Neurological: Yes: Alert, Oriented Labs: CBC, BMP 06/20/18 11:35 06/20/18 11:35 INR, PTT INR 1.09 (0.83-1.09) 06/17/18 17:55 Problem List - Problems (1) Abdominal pain Assessment/Plan: s/p surgery prn pain meds resume diet as tolerated drain is dc noni dc hollis Code(s): R10.9 - UNSPECIFIED ABDOMINAL PAIN (2) Gallstone Code(s): K80.20 - CALCULUS OF GALLBLADDER W/O CHOLECYSTITIS W/O OBSTRUCTION
[2018-06-21] MEDS: AMOX TR/POT CLAV 875MG/125MG TABLETS (FP) PO SCH (08:32)
[2018-06-21] MEDS ORDERED: PT OWN MED DRAWER 7, Y5N ONE (08:56)
[2018-06-21] MEDS ORDERED: MAGNESIUM HYDROX 2400MG/30ML ORAL SUSPENSION 30 ML CUP PO ONE ×2 (09:14→09:30)
--- NOTE | 2018-06-21 09:14 | PN ---
Progress Note (short form) - Note Progress Note: Attending Surgeon POD #3 No c/o; tolerating diet; drain out VSS AF abdo-soft; non tender; port site dressings c/d/i CBC/CMP normal IMP: doing well PLAN: D/C to office f/u 7-10 days. Philippe Funes> Stephen HAINES FACS
[2018-06-21] MEDS: PANTOPRAZOLE SODIUM 40 MG VIAL IVPUSH SCH (09:50)
--- NOTE | 2018-06-21 10:07 | PN ---
Progress Note, Physician History of Present Illness: stable doing well mild pain - Current Medication List Current Medications: Active Medications Amoxicillin/Clavulanate Potassium (Augmentin - 875mg Tablet) 1 tab PO BID@0800, 1730 [facility] Last Admin: 06/21/18 08:32 Dose: 1 tab Hydromorphone HCl (Dilaudid Vial -) 1 mg IVPB Q3H PRN PRN Reason: PAIN LEVEL 6-10 Last Admin: 06/19/18 03:41 Dose: 1 mg Ondansetron HCl (Zofran Injection) 4 mg IVPUSH Q6H PRN PRN Reason: NAUSEA AND/OR VOMITING Oxycodone HCl (Roxicodone -) 5 mg PO Q4H PRN PRN Reason: PAIN LEVEL 1-5 Last Admin: 06/20/18 22:11 Dose: 5 mg Pantoprazole Sodium (Protonix Iv) 40 mg IVPUSH DAILY [facility] Last Admin: 06/21/18 09:50 Dose: 40 mg Promethazine HCl (Phenergan Injection -) 12.5 mg IVPUSH Q6H PRN PRN Reason: NAUSEA-FOR RESCUE AFTER 15 MIN - Objective Vital Signs: Vital Signs Temperature 98.2 F 06/21/18 06:00 Pulse Rate 72 06/21/18 06:00 Respiratory Rate 18 06/21/18 06:00 Blood Pressure 110/61 06/21/18 06:00 O2 Sat by Pulse Oximetry (%) 97 06/21/18 02:00 Constitutional: Yes: No Distress, Calm Cardiovascular: Yes: Regular Rate and Rhythm Respiratory: Yes: Regular, CTA Bilaterally Gastrointestinal: Yes: Normal Bowel Sounds, Soft Musculoskeletal: Yes: WNL Extremities: Yes: WNL Wound/Incision: Yes: Clean/Dry Neurological: Yes: Alert, Oriented Psychiatric: Yes: Alert, Oriented Labs: CBC, BMP 06/20/18 11:35 06/20/18 11:35 INR, PTT INR 1.09 (0.83-1.09) 06/17/18 17:55 Assessment/Plan Problem List - Problems (1) Abdominal pain Code(s): R10.9 - UNSPECIFIED ABDOMINAL PAIN (2) Gallstone Code(s): K80.20 - CALCULUS OF GALLBLADDER W/O CHOLECYSTITIS W/O OBSTRUCTION plan continue current abx' can stop it when patient ready to go home rest as per the team
--- NOTE | 2018-06-21 10:10 | PN ---
Progress Note, Physician History of Present Illness: stable no issues tolerating diet minimal pain - Current Medication List Current Medications: Active Medications Amoxicillin/Clavulanate Potassium (Augmentin - 875mg Tablet) 1 tab PO BID@0800, 1730 [facility] Last Admin: 06/21/18 08:32 Dose: 1 tab Hydromorphone HCl (Dilaudid Vial -) 1 mg IVPB Q3H PRN PRN Reason: PAIN LEVEL 6-10 Last Admin: 06/19/18 03:41 Dose: 1 mg Ondansetron HCl (Zofran Injection) 4 mg IVPUSH Q6H PRN PRN Reason: NAUSEA AND/OR VOMITING Oxycodone HCl (Roxicodone -) 5 mg PO Q4H PRN PRN Reason: PAIN LEVEL 1-5 Last Admin: 06/20/18 22:11 Dose: 5 mg Pantoprazole Sodium (Protonix Iv) 40 mg IVPUSH DAILY [facility] Last Admin: 06/21/18 09:50 Dose: 40 mg Promethazine HCl (Phenergan Injection -) 12.5 mg IVPUSH Q6H PRN PRN Reason: NAUSEA-FOR RESCUE AFTER 15 MIN - Objective Vital Signs: Vital Signs Temperature 98.2 F 06/21/18 06:00 Pulse Rate 72 06/21/18 06:00 Respiratory Rate 18 06/21/18 06:00 Blood Pressure 110/61 06/21/18 06:00 O2 Sat by Pulse Oximetry (%) 97 06/21/18 02:00 Constitutional: Yes: No Distress, Calm Cardiovascular: Yes: Regular Rate and Rhythm Respiratory: Yes: Regular, CTA Bilaterally Gastrointestinal: Yes: Normal Bowel Sounds, Soft Musculoskeletal: Yes: WNL Extremities: Yes: WNL Neurological: Yes: Alert, Oriented Psychiatric: Yes: Alert, Oriented Labs: CBC, BMP 06/20/18 11:35 06/20/18 11:35 INR, PTT INR 1.09 (0.83-1.09) 06/17/18 17:55 Assessment/Plan Problem List - Problems (1) Abdominal pain Code(s): R10.9 - UNSPECIFIED ABDOMINAL PAIN (2) Gallstone Code(s): K80.20 - CALCULUS OF GALLBLADDER W/O CHOLECYSTITIS W/O OBSTRUCTION plan can stop abx rest as per the team
[2018-06-21 11:01] VITALS: BP 127/68; PULSE 84; TEMP 98.4
--- NOTE | 2018-06-21 23:44 | DS ---
Physical Examination Vital Signs: Vital Signs Temperature 98.4 F 06/21/18 10:00 Pulse Rate 84 06/21/18 10:00 Respiratory Rate 18 06/21/18 10:00 Blood Pressure 127/68 06/21/18 10:00 O2 Sat by Pulse Oximetry (%) 96 06/21/18 10:00 Constitutional: Yes: No Distress HENT: Yes: Atraumatic Neck: Yes: Supple Cardiovascular: Yes: Regular Rate and Rhythm Respiratory: Yes: CTA Bilaterally Gastrointestinal: Yes: Normal Bowel Sounds Extremities: Yes: WNL Edema: No Peripheral Pulses WNL: Yes Neurological: Yes: Alert, Oriented Labs: CBC, BMP 06/20/18 11:35 06/20/18 11:35 Discharge Summary Reason For Visit: BILIARY COLIC Condition: Good - Instructions Diet, Activity, Other Instructions: Dr. Mitchell Discharge Instructions Post Operative Instructions Physical activity Resume your normal everyday activity as tolerated no heavy lifting or exercise until seen by your surgeon. You may walk unlimited amounts of and climb stairs. You may resume driving the car when you feel safe and comfortable behind the wheel. Wound care If you have a bandage, leave it on, and keep dry for 48 - 72 hours. After that time discard the outer bandage. If there are tapes on the skin under the outer bandage, leave them in place. They will peel off in the next 7 to 10 days. Do Not peel them off. You may shower 2 days after surgery. If there are tapes present on the skin, they can get wet. Diet There are no dietary restrictions. Eat healthy, high-fiber foods. Drink 6 to 8 glasses of liquid each day. This will assist in keeping your bowels are regular. Pain management You may take Tylenol or acetaminophen or Ibuprofen (for example, Motrin, Advil etc.) Any pain prescription medication ordered should be taken as prescribed for moderate to severe pain. Call Dr. Mitchell for any of the following: Severe pain not relieved by medication Fever of 101 or higher Excessive bleeding or drainage on dressing Inability to urinate Call the office at [phone] for a post operative appointment in 7 - 10 days. Referrals: Nikky Adair MD [Staff Physician] - Disposition: HOME - Home Medications Comprehensive Discharge Medication List: Ambulatory Orders Albuterol Sulfate Inhaler - [Ventolin HFA Inhaler -] 1 puff IH Q4H PRN #1 inhaler 03/21/18 Budesonide/Formeterol Fumarate [SYMBICORT 80/4.5mcg -] 2 puff IH BID #1 inhaler 03/21/18 Prednisone See Taper PO ASDIR #30 tablet 03/21/18 Amox-Tr/K Cl [Augmentin 875-125mg Tablet -] 1 tab PO BID@0800,1730 #14 tablet [facility]
== END 2018-06-21 11:21 | disposition home or self-care (01) | DRG 263 ==
LOC: JER 16:39 → INTOOBSV 19:07 → JERBED 19:07 → J5S 20:47 → OBSVTOIN 06-21 08:00
PROVIDERS: ADMIT Internal Medicine; ATTEND Internal Medicine
PROC: 0FT44ZZ Resection of Gallbladder, Percutaneous Endoscopic Approach (ICD-10-PCS; principal; 2018-06-20)
DX: K80.00 Calculus of gallbladder with acute cholecystitis without obstruction (principal); K82.1 Hydrops of gallbladder; J45.909 Unspecified asthma, uncomplicated
CPT/HCPCS: 36415; 78226-TC; 80053; 82150; 83690; 85025; 85610; 86850; 86900; 86901; 88304-TC; 93005; 93010; 94760; 99283-25; A9537; G0378; J0131; J7030